=== PATIENT | male | born 1955 | race Caucasian/White ===

== ENCOUNTER 2019-03-11 17:55 | Emergency (ER) | payer BC ==
[2019-03-11] MEDS ORDERED: Dicyclomine 10 MG Cap PO ONE (18:12)
[2019-03-11] MEDS ORDERED: Sodium Chloride 0.9% 1,000 ML IV ONE (18:13)
[2019-03-11] MEDS ORDERED: methylPREDNISolone Sodium Succinate 125 MG/2 ML SDV IVPUSH ONE (18:32)
[2019-03-11] MEDS ORDERED: diphenhydrAMINE 50 MG/ML SDV IVPUSH ONE (18:32)
[2019-03-11] MEDS ORDERED: Ondansetron 4 MG/2 ML SDV IVPUSH ONE (18:39)
--- NOTE | 2019-03-11 18:39 | EDM.PDOC ---
ED HPI GENERAL MEDICAL PROBLEM - General Chief Complaint: Gastrointestinal Problem Stated Complaint: ABDOMINAL PAIN Time Seen by Provider: 03/11/19 18:12 Source of Information: Reports: Patient, RN Notes Reviewed History Limitations: Reports: No Limitations - History of Present Illness INITIAL COMMENTS - FREE TEXT/NARRATIVE: Patient is a 63-year-old male who presents to the ED for evaluation of abdominal cramping and diarrhea. Patient notes that he developed diarrhea yesterday morning around 3 AM. He states that he has had about 6 or 8 bouts of diarrhea, that were very watery, and brown. He denies any recent antibiotic use , states it is a fairly healthy human. He states he has had 1-2 episodes of diarrhea today, but this has not provided a lot of stool. He does note increased cramping with the diarrhea today. He denies any color changes except for when he took Pepto. He states that he has had the sensation of being full all day, but has not had much for bowel movements all day. He thinks that he had a fever yesterday of 100.6F. He notes that he does get hot flashes with this. He does have a mild headache. He did take some Pepto yesterday, and this did not help much. He has been taking the Tylenol also and this is not helping. He notes that he was straining to eat some cream of wheat tonight for supper, and then he developed diffuse abdominal cramping. He would rate these at an 8 or 9 out of 10. He states his last colonoscopy was in 2012. Middle Abdomen Pain Score (Numeric/FACES): 1 - Related Data Allergies Allergy/AdvReac Type Severity Reaction Status Date / Time iodine Allergy Other Verified 03/11/19 18:12 clarithromycin AdvReac Nausea Verified 03/11/19 18:11 Home Meds: Home Meds Allopurinol [Zyloprim] 100 mg PO DAILY 03/11/19 [History] Benazepril [Lotensin] 10 mg PO DAILY 03/11/19 [History] Simvastatin [Zocor] 10 mg PO BEDTIME 03/11/19 [History] Triamterene/Hydrochlorothiazid [Triamterene-HCTZ 37.5-25 MG] 1 each PO DAILY [History] Past Medical History Cardiovascular History: Reports: High Cholesterol, Hypertension Gastrointestinal History: Reports: GERD Genitourinary History: Reports: Prostate Disorder Social & Family History - Tobacco Use Smoking Status *Q: Never Smoker - Caffeine Use Caffeine Use: Reports: None ED ROS GENERAL - Review of Systems Review Of Systems: See Below Constitutional: Reports: Fever, Decreased Appetite. Denies: Chills, Weight Loss HEENT: Reports: No Symptoms Respiratory: Denies: Shortness of Breath Cardiovascular: Denies: Chest Pain Endocrine: Reports: No Symptoms GI/Abdominal: Reports: Abdominal Pain (generalized), Diarrhea, Nausea. Denies: Constipation, Vomiting : Reports: No Symptoms Musculoskeletal: Reports: No Symptoms Skin: Reports: No Symptoms Neurological: Reports: Headache Psychiatric: Reports: No Symptoms Hematologic/Lymphatic: Reports: No Symptoms ED EXAM, GI/ABD - Physical Exam Exam: See Below Exam Limited By: No Limitations General Appearance: Alert, WD/WN, No Apparent Distress Eyes: Bilateral: Normal Appearance, EOMI Throat/Mouth: Normal Inspection, Normal Lips, Normal Teeth, Normal Gums, Normal Oropharynx, Normal Voice, No Airway Compromise Head: Atraumatic, Normocephalic Respiratory/Chest: No Respiratory Distress, Lungs Clear, Normal Breath Sounds, No Accessory Muscle Use, Chest Non-Tender Cardiovascular: Normal Peripheral Pulses, Regular Rate, Rhythm, No Edema, No Murmur GI/Abdominal Exam: Soft, No Mass, Distended (pt notes he has a "gut" but states that he feels more full than usual), Guarding, Tender (generalized, but worse laterally) Extremities: Normal Inspection, Normal Capillary Refill Neurological: Alert, Oriented, Normal Cognition, No Motor/Sensory Deficits Psychiatric: Normal Affect, Normal Mood Skin Exam: Warm, Dry, Intact, Normal Color, No Rash Course - Vital Signs Last Recorded V/S: Last Vital Signs Temp 96.9 F 03/11/19 18:08 Pulse 68 03/11/19 18:08 Resp 18 03/11/19 18:08 BP 159/97 H 03/11/19 18:16 Pulse Ox 95 03/11/19 18:08 - Orders/Labs/Meds Orders: Active Orders 24 hr Category Date Time Status Peripheral IV Care [RC] . DIRECTED Care 03/11/19 18:12 Ordered CULTURE STOOL + SHIGATOX [RM] Stat Lab 03/11/19 18:29 Ordered Sodium Chloride 0.9% [Saline Flush] Med 03/11/19 18:12 Ordered 10 ml FLUSH ASDIRECTED PRN Peripheral IV Insertion Adult [OM.PC] Routine Oth 03/11/19 18:12 Ordered Medication Orders Sodium Chloride (Saline Flush) 10 ml FLUSH ASDIRECTED PRN PRN Reason: Keep Vein Open Last Admin: 03/11/19 20:10 Dose: 10 ml Admin: 03/11/19 18:49 Dose: 10 ml Labs: Laboratory Tests 03/11/19 03/11/19 03/11/19 Range/Units 18:45 18:45 19:46 WBC 10.90 H (4.23-9.07) K/mm3 RBC 5.51 (4.63-6.08) M/mm3 Hgb 15.4 (13.7-17.5) gm/dl Hct 45.9 (40.1-51.0) % MCV 83.3 (79.0-92.2) fl MCH 27.9 (25.7-32.2) pg MCHC 33.6 (32.2-35.5) g/dl RDW Std Deviation 41.3 (35.1-43.9) fL Plt Count 201 (163-337) K/mm3 MPV 9.5 (9.4-12.3) fl Neut % (Auto) 74.1 H (34.0-67.9) % Lymph % (Auto) 15.4 L (21.8-53.1) % Bowie % (Auto) 9.3 (5.3-12.2) % Eos % (Auto) 0.9 (0.8-7.0) Baso % (Auto) 0.0 L (0.1-1.2) % Neut # (Auto) 8.08 H (1.78-5.38) K/mm3 Lymph # (Auto) 1.68 (1.32-3.57) K/mm3 Bowie # (Auto) 1.01 H (0.30-0.82) K/mm3 Eos # (Auto) 0.10 (0.04-0.54) K/mm3 Baso # (Auto) 0.00 L (0.01-0.08) K/mm3 Manual Slide Review Normal smear Sodium 135 L (136-145) mEq/L Potassium 3.6 (3.5-5.1) mEq/L Chloride 99 (98-107) mEq/L Carbon Dioxide 24 (21-32) mEq/L Anion Gap 15.6 H (5-15) BUN 13 (7-18) mg/dL Creatinine 1.1 (0.7-1.3) mg/dL Est Cr Clr Drug Dosing 70.97 mL/min Estimated GFR (MDRD) > 60 (>60) mL/min BUN/Creatinine Ratio 11.8 L (14-18) Glucose 156 H (80-115) mg/dL Calcium 8.6 (8.5-10.1) mg/dL Total Bilirubin 0.8 (0.2-1.0) mg/dL AST 18 (15-37) U/L ALT 27 (16-63) U/L Alkaline Phosphatase 60 (46-116) U/L Total Protein 7.5 (6.4-8.2) g/dl Albumin 3.9 (3.4-5.0) g/dl Globulin 3.6 gm/dL Albumin/Globulin Ratio 1.1 (1-2) C.difficile [id number] Presumptive negative C. difficile Tox (PCR) Negative Meds: Medications Generic Name Dose Route Start Last Admin Trade Name Freq PRN Reason Stop Dose Admin Sodium Chloride 10 ml 03/11/19 18:12 03/11/19 20:10 Saline Flush FLUSH 10 ml ASDIRECTED PRN Administration Keep Vein Open Discontinued Medications Generic Name Dose Route Start Last Admin Trade Name Freq PRN Reason Stop Dose Admin Diatrizoate Meglum/Diatrizoate Sod 60 ml 03/11/19 19:00 03/11/19 20:10 Gastrografin 37% PO 03/11/19 19:01 60 ml ONETIME ONE Administration Dicyclomine HCl 20 mg 03/11/19 18:12 03/11/19 18:48 Bentyl PO 03/11/19 18:13 20 mg ONETIME ONE Administration Diphenhydramine HCl 25 mg 03/11/19 18:32 03/11/19 18:46 Benadryl IVPUSH 03/11/19 18:33 25 mg ONETIME ONE Administration Hydromorphone HCl 0.5 mg 03/11/19 20:16 03/11/19 20:23 Dilaudid IVPUSH 03/11/19 20:17 0.5 mg ONETIME ONE Administration Sodium Chloride 1,000 mls @ 999 mls/hr 03/11/19 18:13 03/11/19 18:48 Normal Saline IV 03/11/19 19:13 999 mls/hr ONETIME ONE Administration Iopamidol 100 ml 03/11/19 19:00 03/11/19 20:10 Isovue-300 (61%) IVPUSH 03/11/19 19:01 100 ml ONETIME ONE Administration Methylprednisolone Sodium Succinate 62.5 mg 03/11/19 18:32 03/11/19 18:48 Solu-Medrol IVPUSH 03/11/19 18:33 62.5 mg ONETIME ONE Administration Ondansetron HCl 4 mg 03/11/19 18:39 03/11/19 18:54 Zofran IVPUSH 03/11/19 18:40 4 mg ONETIME ONE Administration - Re-Assessments/Exams Free Text/Narrative Re-Assessment/Exam: 03/11/19 18:42 Patient presents to the ED for evaluation of diarrhea times around 36 hours. Did order stool cultures, if he can provide us a sample, IV with IV fluids, 20 mg dicyclomine, 4 mg Zofran, 62.5 mg Solu-Medrol, 25 mg Benadryl to be pretreated for the abdomen and pelvis CT with contrast. CBC, CMP have been ordered 03/11/19 21:38 CT demonstrates that there is mild bowel wall edema within the distal ileal loops suspicious for enteritis. Fluid within the colon which shows no dilatation. Otherwise other incidental findings. At this point in time his C. difficile is negative. His CBC is slightly elevated at 10,000, but I do not believe he has any sort of infectious process at this time. We'll give general recommendations and discharge home at this time. Departure - Departure Time of Disposition: 21:39 Disposition: Home, Self-Care 01 Condition: Fair Clinical Impression: Enteritis Diarrhea Qualifiers: Diarrhea type: unspecified type Qualified Code(s): R19.7 - Diarrhea, unspecified - Discharge Information *PRESCRIPTION DRUG MONITORING PROGRAM REVIEWED*: No *COPY OF PRESCRIPTION DRUG MONITORING REPORT IN PATIENT GEE: No Instructions: Diarrhea, Adult, [id number] Referrals: Hilton Webster MD [Primary Care Provider] - Forms: ED Department Discharge Additional Instructions: You have been evaluated in the ED for your diarrhea. Your CT demonstrated that you're suffering from a mild enteritis, which is just an inflammation of your small intestine. You may take [id number] Imodium , to help relieve symptoms of diarrhea. You have received IV fluid in the ED to help with the dehydration from the vomiting and diarrhea. Over the next 24-48 hours please try to limit diet to clear liquids and advance as tolerate to a bland diet to alleviate symptoms of diarrhea. You may use ibuprofen or Tylenol every 6 hours as needed for further pain relief. If your condition is not getting better in a few days' time, recommend use care for further evaluation. If you should develop any sort of increased dizziness, increased abdominal pain , or are not able to pass gas or have any sort of bowel movement, these would be cause for concern to return immediately to the ER for reevaluation. Please return to the ED if your symptoms should change or worsen. - My Orders Last 24 Hours: My Active Orders 03/11/19 18:12 Peripheral IV Care [RC] . DIRECTED Sodium Chloride 0.9% [Saline Flush] 10 ml FLUSH ASDIRECTED PRN Peripheral IV Insertion Adult [OM.PC] Routine 03/11/19 18:29 CULTURE STOOL + SHIGATOX [RM] Stat - Assessment/Plan Last 24 Hours: My Active Orders 03/11/19 18:12 Peripheral IV Care [RC] . DIRECTED Sodium Chloride 0.9% [Saline Flush] 10 ml FLUSH ASDIRECTED PRN Peripheral IV Insertion Adult [OM.PC] Routine 03/11/19 18:29 CULTURE STOOL + SHIGATOX [RM] Stat
[2019-03-11] MEDS: Sodium Chloride 0.9% 10 ML Syringe FLUSH PRN ×2 (18:49→20:10)
[2019-03-11] MEDS ORDERED: Diatrizoate Meglumine/Diatrizoate Sodium 37% 120 ML Bottle PO ONE (19:00)
[2019-03-11] MEDS ORDERED: Iopamidol 612 MG/ML 100 ML Bottle IVPUSH ONE (19:00)
[2019-03-11] MEDS ORDERED: HYDROmorphone 0.5 MG/0.5 ML Syringe IVPUSH ONE (20:16)
--- NOTE | 2019-03-11 20:38 | CT ---
CT abdomen and pelvis Technique: Multiple axial sections were obtained from above the dome of the diaphragm inferiorly through the pubic symphysis. Intravenous and oral contrast was utilized. Comparison: Previous CT abdomen and pelvis exam of 12/13/14. Findings: 2 very small low density findings are seen within the dome of the right and left lobes of the liver believed to represent minimal cysts. These are stable from previous exam. Visualized lung bases are clear. Spleen appears within normal limits. Adrenal glands show no nodule. Kidneys show symmetric contrast enhancement without hydronephrosis or mass. Pancreas is within normal limits. Surgical clips are seen from prior cholecystectomy. Aorta shows atherosclerotic calcification without aneurysm. No retroperitoneal adenopathy or mesenteric abnormalities are seen. No pelvic mass or adenopathy is seen. Appendix is felt to be visualized which contains a small calcification. Size of the appendix is within normal limits. There appears to be slight bowel wall edema within the distal ileal loops suspicious for mild enteritis. Fluid is noted within the colon which shows no dilatation. Delayed images shows contrast within the distal ureters and within the bladder. Bone window settings were reviewed which shows degenerative change within the spine which is most severe at L4-5. Impression: 1. Mild bowel wall edema within the distal ileal loops suspicious for enteritis. 2. Fluid within this colon which shows no dilatation. 3. Other findings which are believed to be incidental. No other acute abnormality is appreciated. Diagnostic code #3
== END 2019-03-11 21:50 | disposition home or self-care (01) ==
LOC: JD.ED 17:55
DX: K52.9 Noninfective gastroenteritis and colitis, unspecified (principal); I10 Essential (primary) hypertension; E78.00 Pure hypercholesterolemia, unspecified; Z79.899 Other long term (current) drug therapy; Z88.1 Allergy status to other antibiotic agents; Z88.8 Allergy status to other drugs, medicaments and biological substances
CPT/HCPCS: 36415; 74177; 80053; 85025; 87046; 87493; 89055; 96374; 96375; 99284; A9270; J1170; J1200; J2405; J2930; J7040; Q9963; Q9967; 87427

== ENCOUNTER 2020-03-13 03:27 | Emergency (ER) | payer BC ==
[2020-03-13] MEDS ORDERED: Ondansetron 4 MG Tab.DIS PO ONE (04:11)
--- NOTE | 2020-03-13 04:14 | EDM.PDOC ---
ED HPI GENERAL MEDICAL PROBLEM - General Chief Complaint: General Stated Complaint: COVID POSITIVE SOB Time Seen by Provider: 03/13/20 03:47 Source of Information: Reports: Patient History Limitations: Reports: No Limitations - History of Present Illness INITIAL COMMENTS - FREE TEXT/NARRATIVE: Mr. Quijano is a very pleasant 64-year-old gentleman who now presents to the ED with fever, chills, generalized weakness, and a cough, after testing positive for the SARS-CoV-2 virus on 03/07/2020, receiving the results on 03/10/2020. He states that he had been feeling symptomatic, however, since 03/04/2020. He states that his T-max was 101.9 degrees about 1 to 2 days ago. He states that his cough is occasionally productive of whitish sputum, and sometimes his cough is so severe that he dry heaves. He has not otherwise had any nausea, vomiting, constipation, or diarrhea. The patient states that he has been taking both Tylenol and ibuprofen to treat his symptoms, with his most recent dose of Tylenol around 21:00 last night. Here in the ED, the patient's initial BP is found to be mildly elevated at 160/66, otherwise, he is hemodynamically stable, afebrile, saturating 95% on room air. Prior to 03/04/2020, the patient denies having a recent fever, chills, sore throat, ear pain, nasal or sinus congestion, cough, dyspnea, chest pain, palpitations, nausea, vomiting, constipation, diarrhea, abdominal pain, urinary symptoms, recent weight gain or weight loss, recent bloody bowel movements or black bowel movements, recent joint aches, headaches, or rashes. The patient is PCP is Dr. Hilton Webster. His Urologist is Dr. Brett Bhandari. - Related Data Allergies Allergy/AdvReac Type Severity Reaction Status Date / Time bacitracin Allergy Nausea Verified 03/13/20 03:45 iodine Allergy Other Verified 03/13/20 03:45 clarithromycin AdvReac Nausea Verified 03/13/20 03:45 Home Meds: Home Meds Benazepril [Lotensin] 10 mg PO DAILY 03/11/19 [History] Simvastatin [Zocor] 10 mg PO BEDTIME 03/11/19 [History] Triamterene/Hydrochlorothiazid [Triamterene-HCTZ 37.5-25 MG] 1 each PO DAILY 03/11/19 [History] allopurinoL [Zyloprim] 100 mg PO DAILY 03/11/19 [History] Ondansetron [Zofran ODT] 1 tab PO Q8H PRN #10 tab.dis 03/13/20 [Rx] Past Medical History Cardiovascular History: Reports: High Cholesterol, Hypertension Respiratory History: Reports: Sleep Apnea (nightly CPAP) Gastrointestinal History: Reports: GERD (untreated) Genitourinary History: Reports: Renal Calculus Endocrine/Metabolic History: Reports: Obesity/BMI 30+ - Infectious Disease History Infectious Disease History: Reports: Novel Coronavirus (dx'd 03/07/2020) - Past Surgical History HEENT Surgical History: Reports: Naso-Sinus Surgery (Rhinoplasty), Oral Surgery (dental extractions) GI Surgical History: Reports: Cholecystectomy (around 1999) Male Surgical History: Reports: Lithotripsy ([facility]), Renal Calculus Musculoskeletal Surgical History: Reports: Other (See Below) (Left ruptured biceps tendon arthroscopic repair) Social & Family History - Tobacco Use Tobacco Use Status *Q: Never Tobacco User Second Hand Smoke Exposure: No - Caffeine Use Caffeine Use: Reports: None - Alcohol Use Alcohol Use History: Yes Alcohol Use Frequency: Rarely - Recreational Drug Use Recreational Drug Use: No - Living Situation & Occupation Living situation: Reports: , with Spouse Occupation: Retired ED ROS GENERAL - Review of Systems Review Of Systems: Comprehensive ROS is negative, except as noted in HPI. ED EXAM, GENERAL - Physical Exam Exam: See Below Exam Limited By: No Limitations General Appearance: Alert, WD/WN, Mild Distress (coughs frequently) Eye Exam: Bilateral Eye: EOMI, Normal Inspection Ears: Normal External Exam, Hearing Grossly Normal Nose: Normal Inspection Throat/Mouth: Normal Inspection, Normal Lips, Normal Voice, No Airway Compromise Head: Atraumatic, Normocephalic Neck: Normal Inspection, Full Range of Motion Respiratory/Chest: No Respiratory Distress, Lungs Clear, Normal Breath Sounds, No Accessory Muscle Use, Chest Non-Tender. No: Decreased Breath Sounds, Crackles, Rhonchi, Wheezing, Stridor, Prolonged Expiration Cardiovascular: Normal Peripheral Pulses, Regular Rate, Rhythm, No Gallop, No JVD, No Murmur, No Rub Peripheral Pulses: 3+: Radial (L), Radial (R) GI/Abdominal: Normal Bowel Sounds, Soft, Non-Tender, No Organomegaly, No Distention, No Abnormal Bruit, No Mass Back Exam: Normal Inspection, Full Range of Motion, NT Extremities: Normal Inspection, Normal Range of Motion, Normal Capillary Refill Neurological: Alert, Oriented, Normal Cognition, No Motor/Sensory Deficits Psychiatric: Normal Affect Skin Exam: Warm, Dry, Intact, Normal Color, No Rash Course - Vital Signs Last Recorded V/S: Last Vital Signs Temp 37.2 C 03/13/20 03:40 Pulse 88 03/13/20 03:40 Resp 18 03/13/20 03:40 BP 160/66 H 03/13/20 03:40 Pulse Ox 95 03/13/20 03:40 - Orders/Labs/Meds Orders: Active Orders 24 hr Category Date Time Status Chest 2V [CR] Stat Exams 03/13/20 04:10 Taken Isolation [COMM] Routine Oth 03/13/20 03:56 Ordered Meds: Medications Discontinued Medications Generic Name Dose Route Start Last Admin Trade Name Tanya PRN Reason Stop Dose Admin Ondansetron HCl 4 mg 03/13/20 04:11 03/13/20 04:40 Zofran Odt PO 03/13/20 04:12 4 mg ONETIME ONE Administration - Re-Assessments/Exams Free Text/Narrative Re-Assessment/Exam: 03/13/20 04:12 As above, the patient tested positive for COVID-19 on 03/07/2020, although has been feeling poorly since 03/04/2020, including fever, chills, generalized weakness, and a cough occasionally productive of whitish sputum, sometimes to the point of having dry heaves. Here in the ED, he is afebrile, saturating 95% on room air. He coughs frequently. His physical exam is grossly unremarkable, including clear lungs. I have ordered a chest x-ray to establish a baseline, along with some oral Zofran, however, I explained to the patient that there are no other treatments available at this time, unless his oxygen saturation drops low enough to require supplemental oxygen. The patient expressed understanding. 03/13/20 05:18 2-view chest radiograph is read by Ramiro as "Multifocal lung parenchymal opacities worrisome for multifocal pneumonia." 03/13/20 05:24 Chest x-ray results discussed with the patient. His findings are consistent with COVID-19 pneumonia, although a superimposed bacterial pneumonia is possible, as well. I offered to perform additional blood work, including blood cultures, but the patient declined. I will discharge him home with a prescription for Zofran ODT. The patient is advised to remain quarantined until he is feeling better, then to not return to society until he tests negative, twice. Departure - Departure Time of Disposition: 05:25 Disposition: Home, Self-Care 01 Condition: Good Clinical Impression: Pneumonia due to COVID-19 virus - Discharge Information *PRESCRIPTION DRUG MONITORING PROGRAM REVIEWED*: Not Applicable *COPY OF PRESCRIPTION DRUG MONITORING REPORT IN PATIENT GEE: Not Applicable Prescriptions: Ondansetron [Zofran ODT] 1 tab PO Q8H PRN #10 tab.dis PRN Reason: Nausea/Vomiting Referrals: Hilton Webster MD [Primary Care Provider] - Brett Bhandari MD [Ordering Only Provider] - Forms: ED Department Discharge Additional Instructions: You were seen in the emergency room for fever, chills, generalized weakness, and a cough occasionally productive of white sputum, since 03/04/2020, with a positive test for COVID-19 on 03/07/2020. Work-up in the ER included a chest x-ray, which demonstrated bilateral hazy infiltrates consistent with COVID-19 pneumonia. Additional work-up, including blood work and blood cultures was offered, but declined. As discussed, there are no treatments available for COVID-19 unless your oxygen saturation drops low enough to require supplemental oxygen, which yours has not. A prescription for the anti-nausea medicine Zofran has been sent to the [facility], located just south and across the [address] from [facility]. Dissolve 1 tablet of Zofran on your tongue up to every 8 hours, as needed for nausea/vomiting. As discussed, it is imperative that you remain quarantined until you tested negative for COVID-19, twice. We recommend that you get retested once you are feeling better. If any other problems, please do not hesitate to return to the ER. Sepsis Event Note (ED) - Evaluation Sepsis Screening Result: No Definite Risk - Focused Exam Vital Signs: Vital Signs Temp Pulse Resp BP Pulse Ox 03/13/20 03:40 37.2 C 88 18 160/66 H 95 - My Orders Last 24 Hours: My Active Orders 03/13/20 03:56 Isolation [COMM] Routine 03/13/20 04:10 Chest 2V [CR] Stat - Assessment/Plan Last 24 Hours: My Active Orders 03/13/20 03:56 Isolation [COMM] Routine 03/13/20 04:10 Chest 2V [CR] Stat
--- NOTE | 2020-03-13 10:21 | CR ---
PROCEDURE INFORMATION: Exam: XR Chest, 2 Views Exam date and time: 03/13/2020 4:33 AM Age: 64 years old Clinical indication: Cough and fever; Patient HX: Covid positive test last week, fever, cough, dizziness and belching TECHNIQUE: Imaging protocol: XR of the chest Views: 2 views. COMPARISON: CR Chest 1V Frontal 08/06/2015 8:40 PM FINDINGS: Lungs: Multifocal parenchymal opacities confluent in the right upper lobe and left base worrisome for multifocal pneumonia. There is relative sparing of the left upper lung. Pleural space: Unremarkable. No pleural effusion. No pneumothorax. Heart/Mediastinum: Unremarkable. No cardiomegaly. Bones/joints: Mild degenerative changes both shoulders. Degenerative spondylosis thoracic spine. IMPRESSION: Multifocal lung parenchymal opacities worrisome for multifocal pneumonia. Thank you for allowing us to participate in the care of your patient. Dictated and Authenticated by: Princess Garcia MD 03/13/2020 6:16 AM Central Time ([place] & [place]) ANANTH
== END 2020-03-13 06:00 | disposition home or self-care (01) ==
LOC: JD.ED 03:27
DX: U07.1 COVID-19 (principal); J12.89 Other viral pneumonia; I10 Essential (primary) hypertension; E78.00 Pure hypercholesterolemia, unspecified; E66.9 Obesity, unspecified; Z88.1 Allergy status to other antibiotic agents; Z90.49 Acquired absence of other specified parts of digestive tract; Z68.35 Body mass index [BMI] 35.0-35.9, adult; Z79.899 Other long term (current) drug therapy
CPT/HCPCS: 71046; 99284; A9270

== ENCOUNTER 2020-03-14 18:26 | Emergency (ER) | payer BC ==
--- NOTE | 2020-03-14 20:49 | EDM.PDOC ---
ED HPI GENERAL MEDICAL PROBLEM - General Chief Complaint: Respiratory Problem Stated Complaint: covid positive Time Seen by Provider: 03/14/20 19:36 Source of Information: Reports: Patient, Old Records (ED visit 03/13/2020) History Limitations: Reports: No Limitations - History of Present Illness INITIAL COMMENTS - FREE TEXT/NARRATIVE: Mr. Quijano is a very pleasant 64-year-old gentleman who was seen by me in this ED yesterday morning, 03/13/2020, with a complaint of symptoms due to COVID-19, including fever, chills, generalized weakness, and a cough since 03/04/2020, then testing positive for the SARS-CoV-2 virus on 03/07/2020, receiving the results on 03/10/2020. He reported that his cough was occasionally productive of whitish sputum, and that sometimes his cough is so severe that he dry heaves. He had not otherwise had any nausea, vomiting, constipation, or diarrhea. He stated that he had been taking both Tylenol and ibuprofen to treat his symptoms. He was found to be hemodynamically stable, afebrile, saturating 95% on room air. Work-up included a chest x-ray, which was read by the read as "Multifocal lung parenchymal opacities worrisome for multifocal pneumonia." Additional work-up, including blood work and blood cultures were offered but declined. The patient was discharged home with a prescription for Zofran and the recommendation to remain quarantined until he was feeling better, then not rejoin society until he tested negative twice. The patient now returns to the ED stating that he continues to have chest tightness, dyspnea, and a fever up to 101 degrees, which she has been treating with Tylenol. He is also concerned about low oxygen saturations; he states that his home pulse oximeter will drop to 82 to 83% when he is at rest, but then rise into the 90s when he ambulates. Here in the ED, the patient's initial BP is found to be mildly elevated at 153/77, otherwise, he is hemodynamically stable, afebrile, saturating 93 to 97% on room air. Prior to 03/04/2020, the patient denies having a recent fever, chills, sore throat, ear pain, nasal or sinus congestion, cough, dyspnea, chest pain, palpitations, nausea, vomiting, constipation, diarrhea, abdominal pain, urinary symptoms, recent weight gain or weight loss, recent bloody bowel movements or black bowel movements, recent joint aches, headaches, or rashes. The patient's PCP is Dr. Hilton Webster. His Urologist is Dr. Brett Bhandari. Chest Pain Score (Numeric/FACES): 5 - Related Data Allergies Allergy/AdvReac Type Severity Reaction Status Date / Time bacitracin Allergy Severe Nausea Verified 03/14/20 18:39 iodine Allergy Severe Other Verified 03/14/20 18:39 clarithromycin AdvReac Severe Nausea Verified 03/14/20 18:39 Home Meds: Home Meds Benazepril [Lotensin] 10 mg PO DAILY 03/11/19 [History] Simvastatin [Zocor] 10 mg PO BEDTIME 03/11/19 [History] Triamterene/Hydrochlorothiazid [Triamterene-HCTZ 37.5-25 MG] 1 each PO DAILY 03/11/19 [History] allopurinoL [Zyloprim] 100 mg PO DAILY 03/11/19 [History] Ondansetron [Zofran ODT] 1 tab PO Q8H PRN #10 tab.dis 03/13/20 [Rx] Past Medical History Cardiovascular History: Reports: High Cholesterol, Hypertension Respiratory History: Reports: Sleep Apnea (nightly CPAP) Gastrointestinal History: Reports: GERD (untreated) Genitourinary History: Reports: Renal Calculus Endocrine/Metabolic History: Reports: Obesity/BMI 30+ - Infectious Disease History Infectious Disease History: Reports: Novel Coronavirus (dx'd 03/07/2020) - Past Surgical History HEENT Surgical History: Reports: Naso-Sinus Surgery (rhinoplasty), Oral Surgery (dental extractions) GI Surgical History: Reports: Cholecystectomy (around 1999) Male Surgical History: Reports: Lithotripsy (ESWL), Renal Calculus Musculoskeletal Surgical History: Reports: Other (See Below) (Left ruptured biceps tendon arthroscopic repair) Social & Family History - Tobacco Use Tobacco Use Status *Q: Never Tobacco User - Caffeine Use Caffeine Use: Reports: None - Alcohol Use Alcohol Use History: Yes Alcohol Use Frequency: Rarely - Recreational Drug Use Recreational Drug Use: No - Living Situation & Occupation Living situation: Reports: , with Spouse Occupation: Retired ED ROS GENERAL - Review of Systems Review Of Systems: Comprehensive ROS is negative, except as noted in HPI. ED EXAM, GENERAL - Physical Exam Exam: See Below Exam Limited By: No Limitations General Appearance: Alert, WD/WN, Mild Distress (appears uncomfortable) Eye Exam: Bilateral Eye: EOMI, Normal Inspection Ears: Normal External Exam, Hearing Grossly Normal Nose: Normal Inspection Throat/Mouth: Normal Inspection, Normal Lips, Normal Voice, No Airway Compromise Head: Atraumatic, Normocephalic Neck: Normal Inspection, Full Range of Motion Respiratory/Chest: No Respiratory Distress, No Accessory Muscle Use, Chest Non- Tender, Crackles (bibasilar, end-inspiratory). No: Decreased Breath Sounds, Rhonchi, Wheezing, Stridor, Prolonged Expiration Cardiovascular: Normal Peripheral Pulses, Regular Rate, Rhythm, No Gallop, No JVD, No Murmur, No Rub Peripheral Pulses: 3+: Radial (L), Radial (R) GI/Abdominal: Normal Bowel Sounds, Soft, Non-Tender, No Organomegaly, No Distention, No Abnormal Bruit, No Mass Back Exam: Normal Inspection, Full Range of Motion, NT Extremities: Normal Inspection, Normal Range of Motion, No Pedal Edema, Normal Capillary Refill Neurological: Alert, Oriented, Normal Cognition, No Motor/Sensory Deficits Psychiatric: Normal Affect Skin Exam: Warm, Dry, Intact, Normal Color, No Rash #1 Interpretation EKG Date: 03/14/20 Time: 18:45 Rhythm: NSR Rate (Beats/Min): 73 [place]: Normal P-Wave: Present QRS: Normal ST-T: Normal QT: Normal Comparison: NA - No Prior EKG Course - Vital Signs Last Recorded V/S: Last Vital Signs Temp 37.2 C 03/14/20 18:32 Pulse 76 03/14/20 18:32 Resp 20 03/14/20 18:32 BP 153/77 H 03/14/20 18:32 Pulse Ox 93 L 03/14/20 18:32 - Orders/Labs/Meds Orders: Active Orders 24 hr Category Date Time Status EKG Documentation Completion [RC] STAT Care 03/14/20 20:37 Active Chest 2V [CR] Stat Exams 03/14/20 20:37 Taken CULTURE BLOOD [BC] Stat Lab 03/14/20 21:04 Received CULTURE BLOOD [BC] Stat Lab 03/14/20 21:14 Received Blood Culture x2 Reflex Set [OM.PC] Stat Oth 03/14/20 20:37 Ordered Labs: Laboratory Tests 03/14/20 03/14/20 03/14/20 Range/Units 21:04 21:04 21:04 WBC 9.96 H (4.23-9.07) K/mm3 RBC 4.61 L (4.63-6.08) M/mm3 Hgb 13.2 L D (13.7-17.5) gm/dl Hct 39.5 L (40.1-51.0) % MCV 85.7 (79.0-92.2) fl MCH 28.6 (25.7-32.2) pg MCHC 33.4 (32.2-35.5) g/dl RDW Std Deviation 43.0 (35.1-43.9) fL Plt Count 199 (163-337) K/mm3 MPV 9.3 L (9.4-12.3) fl Neutrophils % (Manual) 74 H (40-60) % Band Neutrophils % 0 (0-10) % Lymphocytes % (Manual) 17 L (20-40) % Atypical Lymphs % 0 % Monocytes % (Manual) 7 (2-10) % Eosinophils % (Manual) 2 (0.8-7.0) % Basophils % (Manual) 0 L (0.2-1.2) Platelet Estimate Adequate Plt Morphology Comment Normal RBC Morph Comment Normal D-Dimer, Quantitative 0.39 (0.19-0.50) mg/L Puncture Site ABG pH (7.35-7.45) ABG pCO2 (35.0-45.0) mmHg ABG pO2 (80.0-100.0) mmHg ABG HCO3 (22.0-26.0) meq/L ABG Base Excess (-2-2.0) Marcus Test O2 Delivery Device Sodium 137 (136-145) mEq/L Potassium 3.7 (3.5-5.1) mEq/L Chloride 100 (98-107) mEq/L Carbon Dioxide 27 (21-32) mEq/L Anion Gap 13.7 (5-15) BUN 9 (7-18) mg/dL Creatinine 0.9 (0.7-1.3) mg/dL Est Cr Clr Drug Dosing 85.62 mL/min Estimated GFR (MDRD) > 60 (>60) mL/min BUN/Creatinine Ratio 10.0 L (14-18) Glucose 115 (80-115) mg/dL Lactic Acid (0.4-2.0) mmol/L Calcium 9.0 (8.5-10.1) mg/dL Magnesium 1.9 (1.8-2.4) mg/dl Total Bilirubin 0.7 (0.2-1.0) mg/dL AST 21 (15-37) U/L ALT 28 (16-63) U/L Alkaline Phosphatase 56 (46-116) U/L Troponin I < 0.017 (0.00-0.056) ng/mL NT-Pro-B Natriuret Pep (0-125) pg/mL Total Protein 7.3 (6.4-8.2) g/dl Albumin 3.3 L (3.4-5.0) g/dl Globulin 4.0 gm/dL Albumin/Globulin Ratio 0.8 L (1-2) 03/14/20 03/14/20 03/14/20 Range/Units 21:04 21:04 21:24 WBC (4.23-9.07) K/mm3 RBC (4.63-6.08) M/mm3 Hgb (13.7-17.5) gm/dl Hct (40.1-51.0) % MCV (79.0-92.2) fl MCH (25.7-32.2) pg MCHC (32.2-35.5) g/dl RDW Std Deviation (35.1-43.9) fL Plt Count (163-337) K/mm3 MPV (9.4-12.3) fl Neutrophils % (Manual) (40-60) % Band Neutrophils % (0-10) % Lymphocytes % (Manual) (20-40) % Atypical Lymphs % % Monocytes % (Manual) (2-10) % Eosinophils % (Manual) (0.8-7.0) % Basophils % (Manual) (0.2-1.2) Platelet Estimate Plt Morphology Comment RBC Morph Comment D-Dimer, Quantitative (0.19-0.50) mg/L Puncture Site Rt radial ABG pH 7.47 H (7.35-7.45) ABG pCO2 38.5 (35.0-45.0) mmHg ABG pO2 62.0 L (80.0-100.0) mmHg ABG HCO3 27.3 H (22.0-26.0) meq/L ABG Base Excess 3.9 H (-2-2.0) Marcus Test Positive O2 Delivery Device Room air Sodium (136-145) mEq/L Potassium (3.5-5.1) mEq/L Chloride (98-107) mEq/L Carbon Dioxide (21-32) mEq/L Anion Gap (5-15) BUN (7-18) mg/dL Creatinine (0.7-1.3) mg/dL Est Cr Clr Drug Dosing mL/min Estimated GFR (MDRD) (>60) mL/min BUN/Creatinine Ratio (14-18) Glucose (80-115) mg/dL Lactic Acid 1.0 (0.4-2.0) mmol/L Calcium (8.5-10.1) mg/dL Magnesium (1.8-2.4) mg/dl Total Bilirubin (0.2-1.0) mg/dL AST (15-37) U/L ALT (16-63) U/L Alkaline Phosphatase (46-116) U/L Troponin I (0.00-0.056) ng/mL NT-Pro-B Natriuret Pep 56 (0-125) pg/mL Total Protein (6.4-8.2) g/dl Albumin (3.4-5.0) g/dl Globulin gm/dL Albumin/Globulin Ratio (1-2) - Re-Assessments/Exams Free Text/Narrative Re-Assessment/Exam: 03/14/20 20:41 As above, the patient tested positive for the macro SARS on 03/07/2020, although he has been symptomatic since 03/04/2020, including fever, dyspnea, cough, and chest tightness. He was seen by me here in the ED yesterday where a chest x-ray demonstrated bilateral hazy infiltrates consistent with COVID-19 pneumonia, how ever, he declined further work-up. He now returns because his pulse oximeter at home is reading 82 to 83% when he is not exerting himself at home, but up to the 90s when he does exert himself, which is paradoxical, and his SPO2 here in the ED is 93 to 97% while at rest, considerably different from what he is getting at home. Unfortunately, he did not bring his pulse oximeter with him. I suspect that his pulse oximeter is giving him artificially low numbers. The patient would like, however, the work-up that I offered yesterday, therefore I have ordered blood work, an ABG, 2 sets of blood cultures, repeat chest x-ray, and an ECG. 03/14/20 22:23 2-view chest radiograph is read by [facility] as "Findings compatible with mild COVID- 19 pneumonia." The patient's CBC is remarkable for WBC count mildly elevated at 9.96, but with 0% bandemia. His H/H are mildly depressed at 13.2/39.5, with the remainder of his CBC being unremarkable. His CMP is unremarkable. His magnesium level is within normal limits at 1.9. His lactic acid level is within normal limits at 1.0. His BNP is within normal limits at 56. His troponin is undetectably low. His D-dimer is within normal limits at 0.39. His ABG represents a combined primary respiratory alkalosis with secondary metabolic alkalosis, with modest hypoxemia. 03/14/20 22:35 Test results discussed with the patient. As above, today's work-up is grossly unremarkable, and consistent with the patient's known COVID-19 diagnosis. His work-up is not consistent with the superimposed bacterial infection. I recommended to the patient that if he continues to get low oxygen readings on his home pulse oximeter, that he bring it to the ED to get a comparison with ours, so that he can have an idea of how off his device is, but as for his symptoms, unfortunately, the patient is simply going to have to tolerate them, as there is nothing that we can offer. Departure - Departure Time of Disposition: 22:37 Disposition: Home, Self-Care 01 Condition: Good Clinical Impression: COVID-19 - Discharge Information *PRESCRIPTION DRUG MONITORING PROGRAM REVIEWED*: Not Applicable *COPY OF PRESCRIPTION DRUG MONITORING REPORT IN PATIENT GEE: Not Applicable Referrals: Hilton Webster MD [Primary Care Provider] - Brett Bhandari MD [Ordering Only Provider] - Forms: ED Department Discharge Additional Instructions: You were seen in the emergency room for continued symptoms of your previously diagnosed COVID-19, including chest tightness, shortness of breath, fever, and low oxygen saturation on your home pulse oximeter. Here in the ED, your pulse oximeter found her oxygen saturation to be 93 to 97% on room air. Work-up in the ER included blood work, 2 sets of blood cultures, an arterial blood gas, a chest x-ray, and an ECG. Your chest x-ray read demonstrated bilateral hazy infiltrates consistent with COVID-19 pneumonia. The remainder of your work-up was unremarkable. There is no evidence for a superimposed bacterial infection. As discussed, there are no treatments available for COVID-19 unless your oxygen saturation drops low enough to require supplemental oxygen, which yours has not. If your home pulse oximeter readings continue to be low, we recommend that you bring your device to the ER to have it compared to ours, so that you can know how far off your device is. As discussed, it is imperative that you remain quarantined until you have tested negative for COVID-19, twice. We recommend that you get retested once you are feeling better. If any other problems, please do not hesitate to return to the ER. Sepsis Event Note (ED) - Evaluation Sepsis Screening Result: No Definite Risk - Focused Exam Vital Signs: Vital Signs Temp Pulse Resp BP Pulse Ox 03/14/20 18:32 37.2 C 76 20 153/77 H 93 L - My Orders Last 24 Hours: My Active Orders 03/14/20 20:37 EKG Documentation Completion [RC] STAT Chest 2V [CR] Stat Blood Culture x2 Reflex Set [OM.PC] Stat 03/14/20 21:04 CULTURE BLOOD [BC] Stat 03/14/20 21:14 CULTURE BLOOD [BC] Stat - Assessment/Plan Last 24 Hours: My Active Orders 03/14/20 20:37 EKG Documentation Completion [RC] STAT Chest 2V [CR] Stat Blood Culture x2 Reflex Set [OM.PC] Stat 03/14/20 21:04 CULTURE BLOOD [BC] Stat 03/14/20 21:14 CULTURE BLOOD [BC] Stat
--- NOTE | 2020-03-15 08:44 | CR ---
PROCEDURE INFORMATION: Exam: XR Chest, 2 Views Exam date and time: 03/14/2020 9:40 PM Age: 64 years old Clinical indication: Shortness of breath; Patient HX: Covid positive TECHNIQUE: Imaging protocol: XR of the chest Views: 2 views. COMPARISON: DX Chest 2V 03/13/2020 4:33 AM FINDINGS: Lungs: There is patchy peripheral airspace density in both lungs. This appears to be slightly increased when compared to the previous examination and is compatible with the patient's stated history of COVID-19 pneumonia. Overall severity is mild. There is no pulmonary edema. Pleural space: Unremarkable. No pleural effusion. No pneumothorax. Heart/Mediastinum: Unremarkable. No cardiomegaly. Bones/joints: Unremarkable. IMPRESSION: Findings compatible with mild COVID-19 pneumonia. Thank you for allowing us to participate in the care of your patient. Dictated and Authenticated by: Brett Bradford MD 03/14/2020 10:56 PM Central Time ([place] & [place]) ANANTH
== END 2020-03-14 23:12 | disposition home or self-care (01) ==
LOC: JD.ED 18:26
DX: U07.1 COVID-19 (principal); E78.00 Pure hypercholesterolemia, unspecified; I10 Essential (primary) hypertension; E66.9 Obesity, unspecified; Z68.35 Body mass index [BMI] 35.0-35.9, adult; Z88.1 Allergy status to other antibiotic agents; Z91.048 Other nonmedicinal substance allergy status; Z79.899 Other long term (current) drug therapy
CPT/HCPCS: 36415; 36600; 71046; 71046-26; 80053; 82803; 83605; 83735; 83880; 84484; 85007; 85027; 85379; 87040; 93005; 99285-25

== ENCOUNTER 2020-03-15 14:14 | Inpatient (IN) | payer BC ==
--- NOTE | 2020-03-15 16:29 | EDM.PDOC ---
ED HPI GENERAL MEDICAL PROBLEM - General Chief Complaint: Respiratory Problem Stated Complaint: COVID+/SOB/COUGH Time Seen by Provider: 03/15/20 16:29 - History of Present Illness INITIAL COMMENTS - FREE TEXT/NARRATIVE: 64-year-old male returns the emergency room with continued shortness of breath painful cough and hypoxia. Patient is been evaluated in this emergency room 2 other times in the last 2 days. Condition continues to worsen with increased shortness of breath a very painful cough and hypoxia. The patient has noticed his O2 saturation dropping as low as 82% at home. He has not done that here in the emergency room however when I am interviewing he drops to 87-88% on our monitors. In the clinic he was also noted to be quite low. His regular physician, Dr. Webster, and call me earlier today and inform me the patient would be coming in. The patient was swabbed on the of last month and was informed of his positive status on the . He has now been sick for over a week. Chest Pain Score (Numeric/FACES): 4 - Related Data Allergies Allergy/AdvReac Type Severity Reaction Status Date / Time bacitracin Allergy Severe Nausea Verified 03/15/20 14:49 iodine Allergy Severe Other Verified 03/15/20 14:49 clarithromycin AdvReac Severe Nausea Verified 03/15/20 14:49 Home Meds: Home Meds Benazepril [Lotensin] 10 mg PO DAILY 03/11/19 [History] Simvastatin [Zocor] 10 mg PO BEDTIME 03/11/19 [History] Triamterene/Hydrochlorothiazid [Triamterene-HCTZ 37.5-25 MG] 1 each PO DAILY 03/11/19 [History] allopurinoL [Zyloprim] 100 mg PO DAILY 03/11/19 [History] Ondansetron [Zofran ODT] 1 tab PO Q8H PRN #10 tab.dis 03/13/20 [Rx] Past Medical History Cardiovascular History: Reports: High Cholesterol, Hypertension Respiratory History: Reports: Sleep Apnea Gastrointestinal History: Reports: GERD Genitourinary History: Reports: Renal Calculus Endocrine/Metabolic History: Reports: Obesity/BMI 30+ - Infectious Disease History Infectious Disease History: Reports: Novel Coronavirus - Past Surgical History HEENT Surgical History: Reports: Naso-Sinus Surgery, Oral Surgery GI Surgical History: Reports: Cholecystectomy Male Surgical History: Reports: Lithotripsy (ESWL), Renal Calculus Social & Family History - Tobacco Use Tobacco Use Status *Q: Unknown Ever Used Tobacco - Caffeine Use Caffeine Use: Reports: None - Living Situation & Occupation Living situation: Reports: , with Spouse Occupation: Retired ED ROS GENERAL - Review of Systems Review Of Systems: See Below Constitutional: Reports: Fever, Chills (His fever and chills for the most part have resolved) HEENT: Reports: No Symptoms Respiratory: Reports: Shortness of Breath, Pleuritic Chest Pain, Cough, Sputum (Occasional clearish foamy sputum) Cardiovascular: Reports: No Symptoms Endocrine: Reports: No Symptoms GI/Abdominal: Reports: Vomiting (He has had some posttussive vomiting but does has not felt nauseated). Denies: Abdominal Pain : Reports: No Symptoms Musculoskeletal: Reports: No Symptoms Skin: Reports: No Symptoms Neurological: Reports: No Symptoms Psychiatric: Reports: No Symptoms Hematologic/Lymphatic: Reports: No Symptoms Immunologic: Reports: No Symptoms ED EXAM, GENERAL - Physical Exam Exam: See Below Exam Limited By: No Limitations General Appearance: Alert, Other (He has these coughing felt spells that are somewhat uncomfortable. With observation of watched his O2 saturation dropped into the 87 to 88% range on room air) Eye Exam: Bilateral Eye: Normal Inspection Ears: Normal External Exam, Normal Canal, Hearing Grossly Normal, Normal TMs Nose: Normal Inspection, Normal Mucosa, No Blood Throat/Mouth: Normal Inspection, Normal Lips, Normal Teeth, Normal Gums, Normal Oropharynx, Normal Voice, No Airway Compromise Head: Atraumatic, Normocephalic Neck: Normal Inspection, Supple, Non-Tender. No: Lymphadenopathy (L), Lymphadenopathy (R) Respiratory/Chest: No Respiratory Distress, Lungs Clear, Other (Frequent cough, deep breathing makes the cough worse.) Cardiovascular: Regular Rate, Rhythm, No Edema, No Murmur GI/Abdominal: Normal Bowel Sounds, Soft, Non-Tender Back Exam: Normal Inspection. No: CVA Tenderness (L), CVA Tenderness (R) Neurological: Alert, Oriented, Normal Cognition Course - Vital Signs Last Recorded V/S: Last Vital Signs Temp 36.8 C 03/15/20 14:49 Pulse 76 03/15/20 14:49 Resp 18 03/15/20 14:49 BP 130/74 03/15/20 14:49 Pulse Ox 92 L 03/15/20 14:49 - Orders/Labs/Meds Orders: Active Orders 24 hr Category Date Time Status Nurse Communication: Isolation [RC] ASDIRECTED Care 03/15/20 15:15 Active Chest 1V Frontal [CR] Stat Exams 03/15/20 16:59 Ordered ABG [BLOOD GAS ARTERIAL] [BG] Stat Lab 03/15/20 17:05 Ordered CBC WITH MANUAL DIFF [HEME] Stat Lab 03/15/20 17:13 Results COMPREHENSIVE METABOLIC PN,CMP [CHEM] Stat Lab 03/15/20 17:13 Received FERRITIN [CHEM] Stat Lab 03/15/20 17:13 Received LACTATE DEHYDROGENASE,LDH [CHEM] Stat Lab 03/15/20 17:13 Received Isolation [COMM] Routine Oth 03/15/20 15:15 Ordered Labs: Laboratory Tests 03/15/20 03/15/20 Range/Units 16:25 17:13 WBC 8.93 (4.23-9.07) K/mm3 RBC 4.83 (4.63-6.08) M/mm3 Hgb 13.5 L (13.7-17.5) gm/dl Hct 41.3 (40.1-51.0) % MCV 85.5 (79.0-92.2) fl MCH 28.0 (25.7-32.2) pg MCHC 32.7 (32.2-35.5) g/dl RDW Std Deviation 42.4 (35.1-43.9) fL Plt Count 246 (163-337) K/mm3 MPV 9.3 L (9.4-12.3) fl Urine Color Yellow (Yellow) Urine Appearance Clear (Clear) Urine pH 6.0 (5.0-8.0) Ur Specific Joseph 1.015 (1.005-1.030) Urine Protein Negative (Negative) Urine Glucose (UA) Negative (Negative) Urine Ketones Negative (Negative) Urine Occult Blood Negative (Negative) Urine Nitrite Negative (Negative) Urine Bilirubin Negative (Negative) Urine Urobilinogen 0.2 (0.2-1.0) Ur Leukocyte Esterase Negative (Negative) - Re-Assessments/Exams Free Text/Narrative Re-Assessment/Exam: 03/15/20 17:03 Interviewing the patient his O2 saturation was dropped to the 87 to 88% range on room air. He did this to me on several occasions. Based on this and his recent work-up the patient will be admitted to the hospital. Fortunately we managed to have a bed available at this moment here. Case discussed with Dr. Guerita mercer who will assume care we will obtain lab work and an ABG from today as well as a follow-up chest x-ray. Departure - Departure Time of Disposition: 17:05 Disposition: Admitted As Inpatient 66 Clinical Impression: COVID-19, Pneumonia due to COVID-19 virus - Discharge Information Referrals: Hilton Webster MD [Primary Care Provider] - Forms: ED Department Discharge Sepsis Event Note (ED) - Evaluation Sepsis Screening Result: No Definite Risk - Focused Exam Vital Signs: Vital Signs Temp Pulse Resp BP Pulse Ox 03/15/20 14:49 36.8 C 76 18 130/74 92 L - My Orders Last 24 Hours: My Active Orders 03/15/20 15:15 Nurse Communication: Isolation [RC] ASDIRECTED Isolation [COMM] Routine 03/15/20 16:59 Chest 1V Frontal [CR] Stat 03/15/20 17:05 ABG [BLOOD GAS ARTERIAL] [BG] Stat 03/15/20 17:13 CBC WITH MANUAL DIFF [HEME] Stat COMPREHENSIVE METABOLIC PN,CMP [CHEM] Stat FERRITIN [CHEM] Stat LACTATE DEHYDROGENASE,LDH [CHEM] Stat - Assessment/Plan Last 24 Hours: My Active Orders 03/15/20 15:15 Nurse Communication: Isolation [RC] ASDIRECTED Isolation [COMM] Routine 03/15/20 16:59 Chest 1V Frontal [CR] Stat 03/15/20 17:05 ABG [BLOOD GAS ARTERIAL] [BG] Stat 03/15/20 17:13 CBC WITH MANUAL DIFF [HEME] Stat COMPREHENSIVE METABOLIC PN,CMP [CHEM] Stat FERRITIN [CHEM] Stat LACTATE DEHYDROGENASE,LDH [CHEM] Stat
[2020-03-15] MEDS ORDERED: Ondansetron 4 MG Tab.DIS PO PRN (19:35)
--- NOTE | 2020-03-15 20:02 | PCM.HP.2 ---
H&P History of Present Illness - General Date of Service: 03/15/20 Admit Problem/Dx: Admission Diagnosis/Problem Admission Diagnosis/Problem Hypoxia Source of Information: Patient History Limitations: Reports: No Limitations - History of Present Illness Initial Comments - Free Text/Narative: 64 year old male with known diagnosis of Covid-19 PNA presents for a third time to [facility] ED. The patient's PCP called the ED and stated that the patient is hypoxic. He was originally diagnosed on 03/07/2020. The testing was performed on 03/05/2020. He continues to be SOB, has a persistent dry cough and malaise. Patient admits to subjective fever; ED evaluation documented hypoxia. The patient will be admitted for Covid-19 PNA with hypoxia, failed OP conservative supportive treatment. Onset of Symptoms: Reports: Gradual Duration of Symptoms: Reports: Week(s):, Getting Worse Location: Reports: Chest Quality: Reports: Same as Previous Episode Severity: Moderate Improves with: Reports: None Worsens with: Reports: None Context: Reports: Sick Contact Associated Symptoms: Reports: Chest Pain, Cough, Shortness of Breath, Weakness Chest Pain Score (Numeric/FACES): 4 - Related Data Allergies/Adverse Reactions: Allergies Allergy/AdvReac Type Severity Reaction Status Date / Time iodine Allergy Severe Other Verified 03/15/20 20:08 clarithromycin AdvReac Severe Nausea Verified 03/15/20 20:08 Home Medications: Home Meds Benazepril [Lotensin] 10 mg PO DAILY 03/11/19 [History] Simvastatin [Zocor] 10 mg PO BEDTIME 03/11/19 [History] Triamterene/Hydrochlorothiazid [Triamterene-HCTZ 37.5-25 MG] 1 each PO BEDTIME 03/11/19 [History] allopurinoL [Zyloprim] 100 mg PO DAILY 03/11/19 [History] Ondansetron [Zofran ODT] 1 tab PO Q8H PRN #10 tab.dis 03/13/20 [Rx] Cholecalciferol (Vitamin D3) [Vitamin D] 1 tab PO DAILY 03/15/20 [History] Multivitamin [Multivitamins] 1 tab PO DAILY 03/15/20 [History] Past Medical History Cardiovascular History: Reports: High Cholesterol, Hypertension Respiratory History: Reports: Sleep Apnea Gastrointestinal History: Reports: GERD Genitourinary History: Reports: Renal Calculus Endocrine/Metabolic History: Reports: Obesity/BMI 30+ - Infectious Disease History Infectious Disease History: Reports: Novel Coronavirus - Past Surgical History HEENT Surgical History: Reports: Naso-Sinus Surgery, Oral Surgery GI Surgical History: Reports: Cholecystectomy Male Surgical History: Reports: Lithotripsy (ESWL), Renal Calculus Social & Family History - Tobacco Use Tobacco Use Status *Q: Unknown Ever Used Tobacco - Caffeine Use Caffeine Use: Reports: None - Living Situation & Occupation Living situation: Reports: , with Spouse Occupation: Retired H&P Review of Systems - Review of Systems: Review Of Systems: See Below General: Reports: Fever, Malaise, Weakness HEENT: Reports: No Symptoms Pulmonary: Reports: Shortness of Breath Cardiovascular: Reports: Chest Pain Gastrointestinal: Reports: No Symptoms Genitourinary: Reports: No Symptoms Musculoskeletal: Reports: No Symptoms Skin: Reports: No Symptoms Psychiatric: Reports: No Symptoms Neurological: Reports: No Symptoms Hematologic/Lymphatic: Reports: No Symptoms Immunologic: Reports: No Symptoms Exam - Exam Exam: See Below - Vital Signs Vital Signs: Last Vital Signs Temp 36.8 C 03/15/20 14:49 Pulse 76 03/15/20 14:49 Resp 18 03/15/20 14:49 BP 130/74 03/15/20 14:49 Pulse Ox 92 L 03/15/20 14:49 Weight: 110.223 kg - Exam Quality Assessment: Supplemental Oxygen General: Alert, Oriented, Cooperative HEENT: EOMI, Nares Patent, Pupils Equal, Pupils Reactive, PERRLA Neck: Trachea Midline Lungs: Normal Respiratory Effort, Decreased Breath Sounds Cardiovascular: Regular Rate, Regular Rhythm GI/Abdominal Exam: Normal Bowel Sounds, Soft (Male) Exam: Deferred Rectal (Males) Exam: Deferred Back Exam: Normal Inspection Extremities: Normal Inspection, Normal Capillary Refill Skin: Warm, Dry Neurological: Cranial Nerves Intact Neuro Extensive - Mental Status: Alert, Oriented x3, Normal Mood/Affect Neuro Extensive - Motor, Sensory, Reflexes: CN II-XII Intact Psychiatric: Alert, Normal Affect, Normal Mood - Patient Data Lab Results Last 24 hrs: Laboratory Results - last 24 hr 03/15/20 03/15/20 03/15/20 Range/Units 16:25 17:13 17:13 WBC 8.93 (4.23-9.07) K/mm3 RBC 4.83 (4.63-6.08) M/mm3 Hgb 13.5 L (13.7-17.5) gm/dl Hct 41.3 (40.1-51.0) % MCV 85.5 (79.0-92.2) fl MCH 28.0 (25.7-32.2) pg MCHC 32.7 (32.2-35.5) g/dl RDW Std Deviation 42.4 (35.1-43.9) fL Plt Count 246 (163-337) K/mm3 MPV 9.3 L (9.4-12.3) fl Neutrophils % (Manual) 67 H (40-60) % Band Neutrophils % 0 (0-10) % Lymphocytes % (Manual) 25 (20-40) % Atypical Lymphs % 0 % Monocytes % (Manual) 8 (2-10) % Eosinophils % (Manual) 0 L (0.8-7.0) % Basophils % (Manual) 0 L (0.2-1.2) Platelet Estimate Adequate RBC Morph Comment Normal Puncture Site ABG pH (7.35-7.45) ABG pCO2 (35.0-45.0) mmHg ABG pO2 (80.0-100.0) mmHg ABG HCO3 (22.0-26.0) meq/L ABG O2 Saturation (96.0-97.0) % ABG Base Excess (-2-2.0) Marcus Test A-a Gradient mmHg O2 Delivery Device FiO2 (21.00-100.00) % Sodium 138 (136-145) mEq/L Potassium 3.8 (3.5-5.1) mEq/L Chloride 100 (98-107) mEq/L Carbon Dioxide 29 (21-32) mEq/L Anion Gap 12.8 (5-15) BUN 12 (7-18) mg/dL Creatinine 0.9 (0.7-1.3) mg/dL Est Cr Clr Drug Dosing 85.62 mL/min Estimated GFR (MDRD) > 60 (>60) mL/min BUN/Creatinine Ratio 13.3 L (14-18) Glucose 114 (80-115) mg/dL Calcium 9.2 (8.5-10.1) mg/dL Ferritin (26-388) ng/ml Total Bilirubin 0.8 (0.2-1.0) mg/dL AST 26 (15-37) U/L ALT 37 (16-63) U/L Alkaline Phosphatase 57 (46-116) U/L Lactate Dehydrogenase 231 H (85-227) U/L Total Protein 7.6 (6.4-8.2) g/dl Albumin 3.3 L (3.4-5.0) g/dl Globulin 4.3 gm/dL Albumin/Globulin Ratio 0.8 L (1-2) Urine Color Yellow (Yellow) Urine Appearance Clear (Clear) Urine pH 6.0 (5.0-8.0) Ur Specific [place] 1.015 (1.005-1.030) Urine Protein Negative (Negative) Urine Glucose (UA) Negative (Negative) Urine Ketones Negative (Negative) Urine Occult Blood Negative (Negative) Urine Nitrite Negative (Negative) Urine Bilirubin Negative (Negative) Urine Urobilinogen 0.2 (0.2-1.0) Ur Leukocyte Esterase Negative (Negative) 03/15/20 03/15/20 Range/Units 17:13 17:46 WBC (4.23-9.07) K/mm3 RBC (4.63-6.08) M/mm3 Hgb (13.7-17.5) gm/dl Hct (40.1-51.0) % MCV (79.0-92.2) fl MCH (25.7-32.2) pg MCHC (32.2-35.5) g/dl RDW Std Deviation (35.1-43.9) fL Plt Count (163-337) K/mm3 MPV (9.4-12.3) fl Neutrophils % (Manual) (40-60) % Band Neutrophils % (0-10) % Lymphocytes % (Manual) (20-40) % Atypical Lymphs % % Monocytes % (Manual) (2-10) % Eosinophils % (Manual) (0.8-7.0) % Basophils % (Manual) (0.2-1.2) Platelet Estimate RBC Morph Comment Puncture Site Lt radial ABG pH 7.48 H (7.35-7.45) ABG pCO2 34.8 L (35.0-45.0) mmHg ABG pO2 70.0 L (80.0-100.0) mmHg ABG HCO3 25.5 (22.0-26.0) meq/L ABG O2 Saturation 93.5 L (96.0-97.0) % ABG Base Excess 2.6 H (-2-2.0) Marcus Test Positive A-a Gradient 36 mmHg O2 Delivery Device Room air FiO2 21.00 (21.00-100.00) % Sodium (136-145) mEq/L Potassium (3.5-5.1) mEq/L Chloride (98-107) mEq/L Carbon Dioxide (21-32) mEq/L Anion Gap (5-15) BUN (7-18) mg/dL Creatinine (0.7-1.3) mg/dL Est Cr Clr Drug Dosing mL/min Estimated GFR (MDRD) (>60) mL/min BUN/Creatinine Ratio (14-18) Glucose (80-115) mg/dL Calcium (8.5-10.1) mg/dL Ferritin 2549 H (26-388) ng/ml Total Bilirubin (0.2-1.0) mg/dL AST (15-37) U/L ALT (16-63) U/L Alkaline Phosphatase (46-116) U/L Lactate Dehydrogenase (85-227) U/L Total Protein (6.4-8.2) g/dl Albumin (3.4-5.0) g/dl Globulin gm/dL Albumin/Globulin Ratio (1-2) Urine Color (Yellow) Urine Appearance (Clear) Urine pH (5.0-8.0) Ur Specific [place] (1.005-1.030) Urine Protein (Negative) Urine Glucose (UA) (Negative) Urine Ketones (Negative) Urine Occult Blood (Negative) Urine Nitrite (Negative) Urine Bilirubin (Negative) Urine Urobilinogen (0.2-1.0) Ur Leukocyte Esterase (Negative) Result Diagrams: 03/16/20 04:20 03/16/20 04:20 Sepsis Event Note - Evaluation Sepsis Screening Result: No Definite Risk - Focused Exam Vital Signs: Vital Signs Temp Pulse Resp BP Pulse Ox 03/15/20 14:49 36.8 C 76 18 130/74 92 L - Problem List (1) Atypical chest pain SNOMED Code(s): 106692901 ICD Code: R07.89 - OTHER CHEST PAIN Status: Acute Current Visit: No (2) COVID-19 SNOMED Code(s): 295875298 ICD Code: U07.1 - COVID-19 Status: Acute Current Visit: No (3) Pneumonia due to COVID-19 virus SNOMED Code(s): 577269363940917643 ICD Code: U07.1 - COVID-19; J12.89 - OTHER VIRAL PNEUMONIA Status: Acute Current Visit: No Problem List Initiated/Reviewed/Updated: Yes Orders Last 24hrs: Active Orders 24 hr Category Date Time Status Patient Status [ADT] Routine ADT 03/15/20 18:24 Active Activity as Tolerated [RC] .Routine Care 03/15/20 19:38 Ordered Nurse Communication: Isolation [RC] ASDIRECTED Care 03/15/20 15:15 Active Vital Signs [RC] PER UNIT ROUTINE Care 03/15/20 19:37 Ordered Chest 1V Frontal [CR] Stat Exams 03/15/20 16:59 Taken BMP [BASIC METABOLIC PANEL,BMP] [CHEM] DAILY Lab 03/16/20 06:00 Ordered BMP [BASIC METABOLIC PANEL,BMP] [CHEM] DAILY Lab 03/17/20 06:00 Ordered BMP [BASIC METABOLIC PANEL,BMP] [CHEM] DAILY Lab 03/18/20 06:00 Ordered CBC W/O DIFF,HEMOGRAM [HEME] DAILY Lab 03/15/20 20:00 Ordered CBC WITH AUTO DIFF [HEME] DAILY Lab 03/15/20 20:00 Ordered CRP [C-REACTIVE PROTEIN] [CHEM] Routine Lab 03/16/20 06:00 Ordered MAGNESIUM [CHEM] Routine Lab 03/16/20 06:00 Ordered PROCALCITONIN [REF] Routine Lab 03/16/20 06:00 Ordered TROPONIN I [CHEM] DAILY Lab 03/16/20 19:39 Ordered TROPONIN I [CHEM] DAILY Lab 03/17/20 19:39 Ordered Aspirin [Ecotrin] Med 03/16/20 09:00 Ordered 325 mg PO DAILY Benazepril [Lotensin] Med 03/16/20 09:00 Active 10 mg PO DAILY Enoxaparin [Lovenox] Med 03/15/20 20:00 Ordered 30 mg SUBCUT Q12H Ondansetron [Zofran ODT] Med 03/15/20 19:35 Ordered 4 mg PO Q8H PRN Pantoprazole [ProTONIX] Med 03/16/20 09:00 Ordered 40 mg PO DAILY Remdesivir (Eua) [Remdesivir (EUA)] 200 mg Med 03/15/20 19:51 Ordered Sodium Chloride 0.9% [Normal Saline] 250 ml IV ONETIME Simvastatin [Zocor] Med 03/15/20 21:00 Ordered 10 mg PO BEDTIME allopurinoL [Zyloprim] Med 03/16/20 09:00 Ordered 100 mg PO DAILY dexAMETHasone Med 03/15/20 22:00 Ordered 6 mg PO DAILY Isolation [COMM] Routine Oth 03/15/20 15:15 Ordered RT Supplemental Oxygen Titration [RESPCARE] Routine Oth 03/15/20 19:37 Ordered Code Status [Resuscitation Status] Routine Resus Stat 03/15/20 19:41 Ordered Medication Orders Allopurinol (Zyloprim) 100 mg PO DAILY CHARLES Aspirin (Ecotrin) 325 mg PO DAILY CHARLES Benazepril HCl (Lotensin) 10 mg PO DAILY CHARLES Dexamethasone (Dexamethasone) 6 mg PO DAILY CHARLES Enoxaparin Sodium (Lovenox) 30 mg SUBCUT Q12H CHARLES Remdesivir 200 mg/ Sodium (Chloride) 250 mls @ 250 mls/hr IV ONETIME ONE Stop: 03/15/20 19:52 Ondansetron HCl (Zofran Odt) 4 mg PO Q8H PRN PRN Reason: Nausea/Vomiting Pantoprazole Sodium (Protonix) 40 mg PO DAILY CHARLES Simvastatin (Zocor) 10 mg PO BEDTIME CHARLES Assessment/Plan Comment:: Impression: Covid-19 pneumonia Hypoxemia; failed OP supportive treatment (SARS d/t Covid 19 infection) Plan: Empiric Zithromax x 3 days. Cautious hydration Decadron Remdesivir BS ac, hs D Dimer LFT CRP, procalcitonin Anticoagulation - Mortality Measure Prognosis:: Good
[2020-03-15] MEDS ORDERED: Dexamethasone 4 MG Tab PO SCH (22:00)
[2020-03-15] MEDS: Enoxaparin 30 MG/0.3 ML Syringe SUBCUT SCH (22:53)
[2020-03-15] MEDS: Simvastatin 10 MG Tab PO SCH (22:53)
--- NOTE | 2020-03-16 09:34 | CR ---
PROCEDURE INFORMATION: Exam: XR Chest, 1 View Exam date and time: 03/15/2020 5:16 PM Age: 64 years old Clinical indication: Cough and shortness of breath and other: Covid follow up TECHNIQUE: Imaging protocol: XR of the chest Views: 1 view. COMPARISON: DX Chest 2V 03/14/2020 9:40 PM FINDINGS: Lungs: Increasing patchy interstitial and alveolar opacities in the left lower lobe and more diffusely in the right upper lobe. Pleural space: No pleural effusion. No pneumothorax. Heart/Mediastinum: Stable mild enlargement of the cardiac silhouette. Mediastinal contours are unremarkable. Bones/joints: Unremarkable for age. IMPRESSION: 1. Increasing patchy interstitial and alveolar opacities in the left lower lobe and more diffusely in the right upper lobe. Findings are suspicious for worsening pneumonia, including COVID pneumonia (patient is reportedly COVID positive per history). Recommend followup chest x- ray to ensure resolution. 2. Incidental/nonacute findings are listed in the report. Thank you for allowing us to participate in the care of your patient. Dictated and Authenticated by: Dunia Landa MD 03/15/2020 7:16 PM Central Time ([place] & [place]) ANAN[place]
[2020-03-16] MEDS: Aspirin 325 MG Tab.EC PO SCH (10:00)
[2020-03-16] MEDS: Cholecalciferol (Vitamin D3) 5,000 UNIT Cap PO SCH (10:00)
[2020-03-16] MEDS: Benazepril 10 MG Tab PO SCH (10:00)
[2020-03-16] MEDS: Pantoprazole 40 MG Tab.CR PO SCH (10:00)
[2020-03-16] MEDS: Allopurinol 100 MG Tab PO SCH (10:00)
[2020-03-16] MEDS: Enoxaparin 30 MG/0.3 ML Syringe SUBCUT SCH ×2 (10:00→20:30)
[2020-03-16] MEDS ORDERED: Azithromycin 500 MG in Sodium Chloride 0.9% 250 ML IV ONE (10:00)
--- NOTE | 2020-03-16 12:02 | PCM.PN ---
- General Info Date of Service: 03/16/20 Functional Status: Reports: Tolerating Diet, Ambulating, Urinating - Review of Systems General: Reports: No Symptoms HEENT: Reports: No Symptoms Pulmonary: Reports: Pleuritic Chest Pain Cardiovascular: Reports: No Symptoms Gastrointestinal: Reports: No Symptoms Genitourinary: Reports: No Symptoms Musculoskeletal: Reports: No Symptoms Skin: Reports: No Symptoms Neurological: Reports: No Symptoms Psychiatric: Reports: No Symptoms - Patient Data Vitals - Most Recent: Last Vital Signs Temp 36.4 C 03/16/20 07:48 Pulse 61 03/16/20 07:48 Resp 16 03/16/20 07:48 BP 134/74 03/16/20 10:00 Pulse Ox 91 L 03/16/20 08:20 Weight - Most Recent: 110.223 kg I&O - Last 24 Hours: Intake & Output 03/15/20 03/16/20 03/16/20 22:59 06:59 14:59 Intake Total 800 Output Total 800 Balance 0 Lab Results Last 24 Hours: Laboratory Results - last 24 hr 03/15/20 03/15/20 03/15/20 Range/Units 16:25 17:13 17:13 WBC 8.93 (4.23-9.07) K/mm3 RBC 4.83 (4.63-6.08) M/mm3 Hgb 13.5 L (13.7-17.5) gm/dl Hct 41.3 (40.1-51.0) % MCV 85.5 (79.0-92.2) fl MCH 28.0 (25.7-32.2) pg MCHC 32.7 (32.2-35.5) g/dl RDW Std Deviation 42.4 (35.1-43.9) fL Plt Count 246 (163-337) K/mm3 MPV 9.3 L (9.4-12.3) fl Neut % (Auto) (34.0-67.9) % Lymph % (Auto) (21.8-53.1) % [place] % (Auto) (5.3-12.2) % Eos % (Auto) (0.8-7.0) Baso % (Auto) (0.1-1.2) % Neut # (Auto) (1.78-5.38) K/mm3 Lymph # (Auto) (1.32-3.57) K/mm3 [place] # (Auto) (0.30-0.82) K/mm3 Eos # (Auto) (0.04-0.54) K/mm3 Baso # (Auto) (0.01-0.08) K/mm3 Neutrophils % (Manual) 67 H (40-60) % Band Neutrophils % 0 (0-10) % Lymphocytes % (Manual) 25 (20-40) % Atypical Lymphs % 0 % Monocytes % (Manual) 8 (2-10) % Eosinophils % (Manual) 0 L (0.8-7.0) % Basophils % (Manual) 0 L (0.2-1.2) Manual Slide Review Platelet Estimate Adequate RBC Morph Comment Normal D-Dimer, Quantitative (0.19-0.50) mg/L Puncture Site ABG pH (7.35-7.45) ABG pCO2 (35.0-45.0) mmHg ABG pO2 (80.0-100.0) mmHg ABG HCO3 (22.0-26.0) meq/L ABG O2 Saturation (96.0-97.0) % ABG Base Excess (-2-2.0) Marcus Test A-a Gradient mmHg O2 Delivery Device FiO2 (21.00-100.00) % Sodium 138 (136-145) mEq/L Potassium 3.8 (3.5-5.1) mEq/L Chloride 100 (98-107) mEq/L Carbon Dioxide 29 (21-32) mEq/L Anion Gap 12.8 (5-15) BUN 12 (7-18) mg/dL Creatinine 0.9 (0.7-1.3) mg/dL Est Cr Clr Drug Dosing 85.62 mL/min Estimated GFR (MDRD) > 60 (>60) mL/min BUN/Creatinine Ratio 13.3 L (14-18) Glucose 114 (80-115) mg/dL Calcium 9.2 (8.5-10.1) mg/dL Magnesium (1.8-2.4) mg/dl Ferritin (26-388) ng/ml Total Bilirubin 0.8 (0.2-1.0) mg/dL AST 26 (15-37) U/L ALT 37 (16-63) U/L Alkaline Phosphatase 57 (46-116) U/L Lactate Dehydrogenase 231 H (85-227) U/L Troponin I (0.00-0.056) ng/mL C-Reactive Protein (<1.0) mg/dL Total Protein 7.6 (6.4-8.2) g/dl Albumin 3.3 L (3.4-5.0) g/dl Globulin 4.3 gm/dL Albumin/Globulin Ratio 0.8 L (1-2) Urine Color Yellow (Yellow) Urine Appearance Clear (Clear) Urine pH 6.0 (5.0-8.0) Ur Specific [employer] 1.015 (1.005-1.030) Urine Protein Negative (Negative) Urine Glucose (UA) Negative (Negative) Urine Ketones Negative (Negative) Urine Occult Blood Negative (Negative) Urine Nitrite Negative (Negative) Urine Bilirubin Negative (Negative) Urine Urobilinogen 0.2 (0.2-1.0) Ur Leukocyte Esterase Negative (Negative) 03/15/20 03/15/20 03/16/20 Range/Units 17:13 17:46 04:20 WBC (4.23-9.07) K/mm3 RBC (4.63-6.08) M/mm3 Hgb (13.7-17.5) gm/dl Hct (40.1-51.0) % MCV (79.0-92.2) fl MCH (25.7-32.2) pg MCHC (32.2-35.5) g/dl RDW Std Deviation (35.1-43.9) fL Plt Count (163-337) K/mm3 MPV (9.4-12.3) fl Neut % (Auto) (34.0-67.9) % Lymph % (Auto) (21.8-53.1) % [place] % (Auto) (5.3-12.2) % Eos % (Auto) (0.8-7.0) Baso % (Auto) (0.1-1.2) % Neut # (Auto) (1.78-5.38) K/mm3 Lymph # (Auto) (1.32-3.57) K/mm3 [place] # (Auto) (0.30-0.82) K/mm3 Eos # (Auto) (0.04-0.54) K/mm3 Baso # (Auto) (0.01-0.08) K/mm3 Neutrophils % (Manual) (40-60) % Band Neutrophils % (0-10) % Lymphocytes % (Manual) (20-40) % Atypical Lymphs % % Monocytes % (Manual) (2-10) % Eosinophils % (Manual) (0.8-7.0) % Basophils % (Manual) (0.2-1.2) Manual Slide Review Platelet Estimate RBC Morph Comment D-Dimer, Quantitative (0.19-0.50) mg/L Puncture Site Lt radial ABG pH 7.48 H (7.35-7.45) ABG pCO2 34.8 L (35.0-45.0) mmHg ABG pO2 70.0 L (80.0-100.0) mmHg ABG HCO3 25.5 (22.0-26.0) meq/L ABG O2 Saturation 93.5 L (96.0-97.0) % ABG Base Excess 2.6 H (-2-2.0) Marcus Test Positive A-a Gradient 36 mmHg O2 Delivery Device Room air FiO2 21.00 (21.00-100.00) % Sodium 139 (136-145) mEq/L Potassium 4.3 (3.5-5.1) mEq/L Chloride 101 (98-107) mEq/L Carbon Dioxide 29 (21-32) mEq/L Anion Gap 13.3 (5-15) BUN 15 (7-18) mg/dL Creatinine 1.0 (0.7-1.3) mg/dL Est Cr Clr Drug Dosing 77.06 mL/min Estimated GFR (MDRD) > 60 (>60) mL/min BUN/Creatinine Ratio 15.0 (14-18) Glucose 154 H (80-115) mg/dL Calcium 9.1 (8.5-10.1) mg/dL Magnesium 2.2 (1.8-2.4) mg/dl Ferritin 2549 H (26-388) ng/ml Total Bilirubin (0.2-1.0) mg/dL AST 27 (15-37) U/L ALT 42 (16-63) U/L Alkaline Phosphatase (46-116) U/L Lactate Dehydrogenase (85-227) U/L Troponin I (0.00-0.056) ng/mL C-Reactive Protein 8.3 H* (<1.0) mg/dL Total Protein (6.4-8.2) g/dl Albumin (3.4-5.0) g/dl Globulin gm/dL Albumin/Globulin Ratio (1-2) Urine Color (Yellow) Urine Appearance (Clear) Urine pH (5.0-8.0) Ur Specific [employer] (1.005-1.030) Urine Protein (Negative) Urine Glucose (UA) (Negative) Urine Ketones (Negative) Urine Occult Blood (Negative) Urine Nitrite (Negative) Urine Bilirubin (Negative) Urine Urobilinogen (0.2-1.0) Ur Leukocyte Esterase (Negative) 03/16/20 03/16/20 03/16/20 Range/Units 04:20 04:20 08:40 WBC 8.55 (4.23-9.07) K/mm3 RBC 4.94 (4.63-6.08) M/mm3 Hgb 13.6 L (13.7-17.5) gm/dl Hct 42.7 (40.1-51.0) % MCV 86.4 (79.0-92.2) fl MCH 27.5 (25.7-32.2) pg MCHC 31.9 L (32.2-35.5) g/dl RDW Std Deviation 42.8 (35.1-43.9) fL Plt Count 280 (163-337) K/mm3 MPV 10.1 (9.4-12.3) fl Neut % (Auto) 84.9 H (34.0-67.9) % Lymph % (Auto) 11.1 L (21.8-53.1) % [place] % (Auto) 2.7 L (5.3-12.2) % Eos % (Auto) 0.1 L (0.8-7.0) Baso % (Auto) 0.4 (0.1-1.2) % Neut # (Auto) 7.26 H (1.78-5.38) K/mm3 Lymph # (Auto) 0.95 L (1.32-3.57) K/mm3 [place] # (Auto) 0.23 L (0.30-0.82) K/mm3 Eos # (Auto) 0.01 L (0.04-0.54) K/mm3 Baso # (Auto) 0.03 (0.01-0.08) K/mm3 Neutrophils % (Manual) (40-60) % Band Neutrophils % (0-10) % Lymphocytes % (Manual) (20-40) % Atypical Lymphs % % Monocytes % (Manual) (2-10) % Eosinophils % (Manual) (0.8-7.0) % Basophils % (Manual) (0.2-1.2) Manual Slide Review Abnormal smear Platelet Estimate RBC Morph Comment D-Dimer, Quantitative 0.36 (0.19-0.50) mg/L Puncture Site ABG pH (7.35-7.45) ABG pCO2 (35.0-45.0) mmHg ABG pO2 (80.0-100.0) mmHg ABG HCO3 (22.0-26.0) meq/L ABG O2 Saturation (96.0-97.0) % ABG Base Excess (-2-2.0) Marcus Test A-a Gradient mmHg O2 Delivery Device FiO2 (21.00-100.00) % Sodium (136-145) mEq/L Potassium (3.5-5.1) mEq/L Chloride (98-107) mEq/L Carbon Dioxide (21-32) mEq/L Anion Gap (5-15) BUN (7-18) mg/dL Creatinine (0.7-1.3) mg/dL Est Cr Clr Drug Dosing mL/min Estimated GFR (MDRD) (>60) mL/min BUN/Creatinine Ratio (14-18) Glucose (80-115) mg/dL Calcium (8.5-10.1) mg/dL Magnesium (1.8-2.4) mg/dl Ferritin (26-388) ng/ml Total Bilirubin (0.2-1.0) mg/dL AST (15-37) U/L ALT (16-63) U/L Alkaline Phosphatase (46-116) U/L Lactate Dehydrogenase (85-227) U/L Troponin I < 0.017 (0.00-0.056) ng/mL C-Reactive Protein (<1.0) mg/dL Total Protein (6.4-8.2) g/dl Albumin (3.4-5.0) g/dl Globulin gm/dL Albumin/Globulin Ratio (1-2) Urine Color (Yellow) Urine Appearance (Clear) Urine pH (5.0-8.0) Ur Specific [employer] (1.005-1.030) Urine Protein (Negative) Urine Glucose (UA) (Negative) Urine Ketones (Negative) Urine Occult Blood (Negative) Urine Nitrite (Negative) Urine Bilirubin (Negative) Urine Urobilinogen (0.2-1.0) Ur Leukocyte Esterase (Negative) Med Orders - Current: Current Medications Allopurinol (Zyloprim) 100 mg PO DAILY [facility] Last Admin: 03/16/20 10:00 Dose: 100 mg Documented by: Aspirin (Ecotrin) 325 mg PO DAILY [facility] Last Admin: 03/16/20 10:00 Dose: 325 mg Documented by: Benazepril HCl (Lotensin) 10 mg PO DAILY [facility] Last Admin: 03/16/20 10:00 Dose: 10 mg Documented by: Cholecalciferol (Vitamin D3) 5,000 unit PO DAILY [facility] Last Admin: 03/16/20 10:00 Dose: 5,000 unit Documented by: Dexamethasone (Dexamethasone) 6 mg PO Q24H [facility] Stop: 03/24/20 22:01 Enoxaparin Sodium (Lovenox) 30 mg SUBCUT Q12H [facility] Last Admin: 03/16/20 10:00 Dose: 30 mg Documented by: Remdesivir 100 mg/ Sodium (Chloride) 100 mls @ 100 mls/hr IV Q24H [facility] Stop: 03/19/20 22:59 Azithromycin 500 mg/ Sodium (Chloride) 250 mls @ 250 mls/hr IV Q24H [facility] Stop: 03/18/20 10:59 Ondansetron HCl (Zofran Odt) 4 mg PO Q8H PRN PRN Reason: Nausea/Vomiting Pantoprazole Sodium (Protonix) 40 mg PO DAILY [facility] Last Admin: 03/16/20 10:00 Dose: 40 mg Documented by: Simvastatin (Zocor) 10 mg PO BEDTIME [facility] Last Admin: 03/15/20 22:53 Dose: 10 mg Documented by: Discontinued Medications Dexamethasone (Dexamethasone) 6 mg PO DAILY [facility] Last Admin: 03/15/20 22:54 Dose: 6 mg Documented by: Remdesivir 200 mg/ Sodium (Chloride) 250 mls @ 250 mls/hr IV ONETIME ONE Stop: 03/15/20 22:29 Last Admin: 03/15/20 22:53 Dose: 250 mls/hr Documented by: Azithromycin 500 mg/ Sodium (Chloride) 250 mls @ 250 mls/hr IV ONETIME ONE Stop: 03/16/20 10:59 Last Admin: 03/16/20 10:01 Dose: 250 mls/hr Documented by: - Exam Quality Assessment: DVT Prophylaxis General: Alert, Oriented, Cooperative, No Acute Distress HEENT: Pupils Equal, Pupils Reactive, EOMI Neck: Trachea Midline, No JVD Lungs: Normal Respiratory Effort, Other (improved BS) GI/Abdominal Exam: Normal Bowel Sounds, Soft, Non-Tender, No Distention (Male) Exam: Deferred Back Exam: Normal Inspection Extremities: Normal Inspection, Normal Range of Motion Skin: Warm, Dry Neurological: No New Focal Deficit, Normal Gait, Normal Speech Psy/Mental Status: Alert, Normal Affect, Normal Mood Sepsis Event Note - Evaluation Sepsis Screening Result: No Definite Risk - Focused Exam Vital Signs: Vital Signs Temp Pulse Resp BP Pulse Ox Pulse Ox 03/16/20 10:00 134/74 03/16/20 08:20 91 L 03/16/20 07:48 36.4 C 61 16 134/74 93 L 03/16/20 04:49 36.2 C 03/16/20 04:42 69 22 H 140/88 90 L 03/16/20 00:34 37.2 C 69 22 H 95/78 91 L - Problem List & Annotations (1) Atypical chest pain SNOMED Code(s): 304750262 Code(s): R07.89 - OTHER CHEST PAIN Status: Acute Current Visit: No (2) COVID-19 SNOMED Code(s): 166666991 Code(s): U07.1 - COVID-19 Status: Acute Current Visit: No (3) Pneumonia due to COVID-19 virus SNOMED Code(s): 837470837270834015 Code(s): U07.1 - COVID-19; J12.89 - OTHER VIRAL PNEUMONIA Status: Acute Current Visit: No - Problem List Review Problem List Initiated/Reviewed/Updated: Yes - My Orders Last 24 Hours: My Active Orders 03/15/20 19:35 Ondansetron [Zofran ODT] 4 mg PO Q8H PRN 03/15/20 19:37 Vital Signs [RC] Q4HR RT Supplemental Oxygen Titration [RESPCARE] Routine 03/15/20 19:38 Activity as Tolerated [RC] .Routine 03/15/20 19:41 Code Status [Resuscitation Status] Routine 03/15/20 20:00 Enoxaparin [Lovenox] 30 mg SUBCUT Q12H 03/15/20 21:00 Simvastatin [Zocor] 10 mg PO BEDTIME 03/15/20 22:42 RT Incentive Spirometry [RC] ASDIRECTED 03/15/20 22:43 Acapella [RT Chest Physiotherapy] [RC] ASDIRECTED 03/16/20 04:20 PROCALCITONIN [REF] Routine 03/16/20 06:00 TROPONIN I [CHEM] DAILY 03/16/20 Breakfast Heart Healthy Diet [DIET] 03/16/20 09:00 Aspirin [Ecotrin] 325 mg PO DAILY Benazepril [Lotensin] 10 mg PO DAILY Cholecalciferol (Vitamin D3) [Vitamin D3] 5,000 unit PO DAILY Pantoprazole [ProTONIX] 40 mg PO DAILY allopurinoL [Zyloprim] 100 mg PO DAILY 03/16/20 22:00 Remdesivir (Eua) [Remdesivir (EUA)] 100 mg Sodium Chloride 0.9% [Normal Saline] 100 ml IV Q24H dexAMETHasone 6 mg PO Q24H 03/17/20 06:00 ALANINE AMINOTRANSFERASE,ALT [CHEM] DAILY ASPARTATE AMNIOTRANSFERASE,AST [CHEM] DAILY BMP [BASIC METABOLIC PANEL,BMP] [CHEM] DAILY TROPONIN I [CHEM] DAILY 03/17/20 10:00 Azithromycin [Zithromax] 500 mg Sodium Chloride 0.9% [Normal Saline (AdvBag)] 250 ml IV Q24H 03/18/20 06:00 ALANINE AMINOTRANSFERASE,ALT [CHEM] DAILY ASPARTATE AMNIOTRANSFERASE,AST [CHEM] DAILY BMP [BASIC METABOLIC PANEL,BMP] [CHEM] DAILY TROPONIN I [CHEM] DAILY - Plan Plan:: Impression: Covid-19 pneumonia Hypoxemia; failed OP supportive treatment (SARS d/t Covid 19 infection) Plan: Check mycoplasma Empiric Zithromax x 3 days. Cautious hydration Decadron Remdesivir x 5 days BS ac, hs D Dimer LFT CRP, procalcitonin Anticoagulation
[2020-03-16] MEDS: Simvastatin 10 MG Tab PO SCH (20:30)
[2020-03-16] MEDS: Dexamethasone 4 MG Tab PO SCH (20:30)
[2020-03-16] MEDS: REMDESIVIR (EUA) 100 MG in Sodium Chloride 0.9% 100 ML IV SCH (21:31)
[2020-03-17] MEDS: Dexamethasone 4 MG Tab PO SCH ×2 (05:57→20:57)
[2020-03-17] MEDS: Enoxaparin 30 MG/0.3 ML Syringe SUBCUT SCH ×3 (08:51→20:55)
[2020-03-17] MEDS: Cholecalciferol (Vitamin D3) 5,000 UNIT Cap PO SCH (08:52)
[2020-03-17] MEDS: Pantoprazole 40 MG Tab.CR PO SCH (08:52)
[2020-03-17] MEDS: Azithromycin 500 MG in Sodium Chloride 0.9% 250 ML IV SCH (08:52)
[2020-03-17] MEDS: Aspirin 325 MG Tab.EC PO SCH (08:52)
[2020-03-17] MEDS: Allopurinol 100 MG Tab PO SCH (08:52)
[2020-03-17] MEDS ORDERED: Azithromycin 500 MG in Sodium Chloride 0.9% 250 ML IV SCH (10:00)
--- NOTE | 2020-03-17 12:24 | PCM.PN ---
<Fred Jauregui M - Last Filed: 03/17/20 12:18> - General Info Date of Service: 03/17/20 Admission Dx/Problem (Free Text): Admission Diagnosis/Problem Admission Diagnosis/Problem Hypoxia Subjective Update: Patient is on room air. He states however that he is not feeling well today. He is having a lot of chest tightness and increased coughing that is nonproductive. Functional Status: Reports: Pain Controlled, Tolerating Diet, Ambulating, Urinating, Incentive Spirometry (Needs encouragement) - Review of Systems General: Reports: No Symptoms, Appetite HEENT: Reports: No Symptoms Pulmonary: Reports: Shortness of Breath, Pleuritic Chest Pain, Cough. Denies: Sputum, Wheezing Cardiovascular: Reports: Dyspnea on Exertion. Denies: Edema Gastrointestinal: Reports: No Symptoms. Denies: Diarrhea Genitourinary: Reports: No Symptoms Musculoskeletal: Reports: No Symptoms Skin: Reports: No Symptoms Neurological: Reports: No Symptoms Psychiatric: Reports: No Symptoms - Patient Data Vitals - Most Recent: Last Vital Signs Temp 97.9 F 03/17/20 12:12 Pulse 78 03/17/20 12:12 Resp 22 H 03/17/20 12:12 BP 110/79 03/17/20 12:12 Pulse Ox 91 L 03/17/20 12:12 Weight - Most Recent: 110.903 kg I&O - Last 24 Hours: Intake & Output 03/16/20 03/17/20 03/17/20 22:59 06:59 14:59 Intake Total 1610 500 Output Total 600 650 Balance 1010 -150 Lab Results Last 24 Hours: Laboratory Results - last 24 hr 03/16/20 03/16/20 03/17/20 Range/Units 04:20 15:02 04:42 WBC (4.23-9.07) K/mm3 RBC (4.63-6.08) M/mm3 Hgb (13.7-17.5) gm/dl Hct (40.1-51.0) % MCV (79.0-92.2) fl MCH (25.7-32.2) pg MCHC (32.2-35.5) g/dl RDW Std Deviation (35.1-43.9) fL Plt Count (163-337) K/mm3 MPV (9.4-12.3) fl D-Dimer, Quantitative 0.38 (0.19-0.50) mg/L Sodium 138 (136-145) mEq/L Potassium 3.8 (3.5-5.1) mEq/L Chloride 101 (98-107) mEq/L Carbon Dioxide 24 (21-32) mEq/L Anion Gap 16.8 H (5-15) BUN 17 (7-18) mg/dL Creatinine 0.9 (0.7-1.3) mg/dL Est Cr Clr Drug Dosing 85.62 mL/min Estimated GFR (MDRD) > 60 (>60) mL/min BUN/Creatinine Ratio 18.9 H (14-18) Glucose 164 H (80-115) mg/dL Calcium 8.8 (8.5-10.1) mg/dL AST 18 (15-37) U/L ALT 40 (16-63) U/L Troponin I < 0.017 (0.00-0.056) ng/mL C-Reactive Protein (<1.0) mg/dL Procalcitonin <0.05 (<0.10) ng/mL 03/17/20 03/17/20 03/17/20 Range/Units 04:42 04:42 04:42 WBC 10.95 H (4.23-9.07) K/mm3 RBC 4.73 (4.63-6.08) M/mm3 Hgb 13.2 L (13.7-17.5) gm/dl Hct 40.6 (40.1-51.0) % MCV 85.8 (79.0-92.2) fl MCH 27.9 (25.7-32.2) pg MCHC 32.5 (32.2-35.5) g/dl RDW Std Deviation 41.7 (35.1-43.9) fL Plt Count 305 (163-337) K/mm3 MPV 10.4 (9.4-12.3) fl D-Dimer, Quantitative 0.62 H (0.19-0.50) mg/L Sodium (136-145) mEq/L Potassium (3.5-5.1) mEq/L Chloride (98-107) mEq/L Carbon Dioxide (21-32) mEq/L Anion Gap (5-15) BUN (7-18) mg/dL Creatinine (0.7-1.3) mg/dL Est Cr Clr Drug Dosing mL/min Estimated GFR (MDRD) (>60) mL/min BUN/Creatinine Ratio (14-18) Glucose (80-115) mg/dL Calcium (8.5-10.1) mg/dL AST (15-37) U/L ALT (16-63) U/L Troponin I (0.00-0.056) ng/mL C-Reactive Protein 3.8 H* (<1.0) mg/dL Procalcitonin (<0.10) ng/mL Med Orders - Current: Current Medications Albuterol (Proventil Hfa) 0 gm INH Q2H PRN PRN Reason: wheezing/sob Allopurinol (Zyloprim) 100 mg PO DAILY [facility] Last Admin: 03/17/20 08:52 Dose: 100 mg Documented by: Aspirin (Ecotrin) 325 mg PO DAILY [facility] Last Admin: 03/17/20 08:52 Dose: 325 mg Documented by: Benazepril HCl (Lotensin) 10 mg PO DAILY [facility] Last Admin: 03/16/20 10:00 Dose: 10 mg Documented by: Cholecalciferol (Vitamin D3) 5,000 unit PO DAILY [facility] Last Admin: 03/17/20 08:52 Dose: 5,000 unit Documented by: Dexamethasone (Dexamethasone) 6 mg PO Q24H [facility] Stop: 03/24/20 22:01 Last Admin: 03/17/20 05:57 Dose: Not Given Documented by: Enoxaparin Sodium (Lovenox) 30 mg SUBCUT Q12H [facility] Last Admin: 03/17/20 08:51 Dose: 30 mg Documented by: Remdesivir 100 mg/ Sodium (Chloride) 100 mls @ 100 mls/hr IV Q24H [facility] Stop: 03/19/20 22:59 Last Admin: 03/16/20 21:31 Dose: 100 mls/hr Documented by: Azithromycin 500 mg/ Sodium (Chloride) 250 mls @ 250 mls/hr IV Q24H [facility] Stop: 03/18/20 09:59 Last Admin: 03/17/20 08:52 Dose: 250 mls/hr Documented by: Ondansetron HCl (Zofran Odt) 4 mg PO Q8H PRN PRN Reason: Nausea/Vomiting Pantoprazole Sodium (Protonix) 40 mg PO DAILY [facility] Last Admin: 03/17/20 08:52 Dose: 40 mg Documented by: Simvastatin (Zocor) 10 mg PO BEDTIME [facility] Last Admin: 03/16/20 20:30 Dose: 10 mg Documented by: Discontinued Medications Dexamethasone (Dexamethasone) 6 mg PO DAILY [facility] Last Admin: 03/15/20 22:54 Dose: 6 mg Documented by: Enoxaparin Sodium (Lovenox) 30 mg SUBCUT Q12H [facility] Last Admin: 03/16/20 20:30 Dose: 30 mg Documented by: Remdesivir 200 mg/ Sodium (Chloride) 250 mls @ 250 mls/hr IV ONETIME ONE Stop: 03/15/20 22:29 Last Admin: 03/15/20 22:53 Dose: 250 mls/hr Documented by: Azithromycin 500 mg/ Sodium (Chloride) 250 mls @ 250 mls/hr IV ONETIME ONE Stop: 03/16/20 10:59 Last Admin: 03/16/20 10:01 Dose: 250 mls/hr Documented by: Azithromycin 500 mg/ Sodium (Chloride) 250 mls @ 250 mls/hr IV Q24H [facility] Stop: 03/18/20 10:59 - Exam Quality Assessment: DVT Prophylaxis (Lovenox). No: Supplemental Oxygen (On room air) General: Alert, Oriented, Cooperative. No: No Acute Distress HEENT: Pupils Equal, Pupils Reactive, Mucous Membr. Moist/[place] Neck: Supple, Trachea Midline. No: Lymphadenopathy Lungs: Decreased Breath Sounds, Crackles (Right side posterior left side in the bases.) Cardiovascular: Regular Rate, Regular Rhythm, No Murmurs GI/Abdominal Exam: Normal Bowel Sounds, Soft, Non-Tender, No Distention (Male) Exam: Deferred Back Exam: Normal Inspection, Full Range of Motion Extremities: Normal Inspection, Normal Range of Motion, Non-Tender, No Pedal Edema, Normal Capillary Refill Peripheral Pulses: 2+: Radial (L), Radial (R), Dorsalis Pedis (L), Dorsalis Pedis (R) Skin: Warm, Dry, Intact Neurological: No New Focal Deficit Psy/Mental Status: Alert, Normal Affect, Normal Mood Sepsis Event Note - Evaluation Sepsis Screening Result: No Definite Risk - Focused Exam Vital Signs: Vital Signs Temp Temp Pulse Pulse Resp BP BP 03/17/20 12:12 97.9 F 78 22 H 110/79 03/17/20 12:05 97.9 F 70 110/97 H 03/17/20 08:10 97.5 F 67 20 127/88 03/17/20 07:59 03/17/20 04:43 98.1 F 65 17 131/70 Pulse Ox Pulse Ox 03/17/20 12:12 91 L 03/17/20 12:05 92 L 03/17/20 08:10 91 L 03/17/20 07:59 92 L 03/17/20 04:43 93 L - Problem List & Annotations (1) Atypical chest pain SNOMED Code(s): 397779164 Code(s): R07.89 - OTHER CHEST PAIN Status: Acute Priority: High Current Visit: Yes (2) COVID-19 SNOMED Code(s): 789217655 Code(s): U07.1 - COVID-19 Status: Acute Priority: High Current Visit: Yes (3) Pneumonia due to COVID-19 virus SNOMED Code(s): 093032984741803690 Code(s): U07.1 - COVID-19; J12.89 - OTHER VIRAL PNEUMONIA Status: Acute Priority: High Current Visit: Yes - Problem List Review Problem List Initiated/Reviewed/Updated: Yes - Assessment Assessment:: 03/17/20 * Patient is currently on room air. * Still complaining of pleuritic chest pain. States 6 feels extremely tight when he coughs. Needs a lot of encouragement to do his incentive spirometer as he states he can take a deep breath on his own to make himself cough. * States he has a good appetite and he is eating 100% of his meals. * Currently on day 3 of Zithromax, dexamethasone, and remdesivir. * Vital signs have remained stable over the past 24 hours and his max temperature was 99.0. - Plan Plan:: Impression: Covid-19 pneumonia Hypoxemia; failed OP supportive treatment (SARS d/t Covid 19 infection) Plan: Check mycoplasma Empiric Zithromax x 3 days. Cautious hydration Decadron Remdesivir x 5 days BS ac, hs D Dimer LFT CRP, procalcitonin Anticoagulation 03/17/20 * Lovenox for DVT prophylaxis. * Incentive spirometer and flutter valve every 1 hour while awake. * Increase activity independently in his room and sitting up in the chair for all meals. * Encourage side to side sleeping as the patient states he is unable to prone position. * Continue remdesivir and dexamethasone. * Repeat labs in the a.m. <Ronna Spann - Last Filed: 03/17/20 13:12> - Patient Data Vitals - Most Recent: Last Vital Signs Temp 36.6 C 03/17/20 12:12 Pulse 78 03/17/20 12:12 Resp 22 H 03/17/20 12:12 BP 110/79 03/17/20 12:12 Pulse Ox 96 03/17/20 12:49 I&O - Last 24 Hours: Intake & Output 03/16/20 03/17/20 03/17/20 22:59 06:59 14:59 Intake Total 1610 500 Output Total 600 650 Balance 1010 -150 Lab Results Last 24 Hours: Laboratory Results - last 24 hr 03/16/20 03/16/20 03/17/20 Range/Units 04:20 15:02 04:42 WBC (4.23-9.07) K/mm3 RBC (4.63-6.08) M/mm3 Hgb (13.7-17.5) gm/dl Hct (40.1-51.0) % MCV (79.0-92.2) fl MCH (25.7-32.2) pg MCHC (32.2-35.5) g/dl RDW Std Deviation (35.1-43.9) fL Plt Count (163-337) K/mm3 MPV (9.4-12.3) fl D-Dimer, Quantitative 0.38 (0.19-0.50) mg/L Sodium 138 (136-145) mEq/L Potassium 3.8 (3.5-5.1) mEq/L Chloride 101 (98-107) mEq/L Carbon Dioxide 24 (21-32) mEq/L Anion Gap 16.8 H (5-15) BUN 17 (7-18) mg/dL Creatinine 0.9 (0.7-1.3) mg/dL Est Cr Clr Drug Dosing 85.62 mL/min Estimated GFR (MDRD) > 60 (>60) mL/min BUN/Creatinine Ratio 18.9 H (14-18) Glucose 164 H (80-115) mg/dL Calcium 8.8 (8.5-10.1) mg/dL AST 18 (15-37) U/L ALT 40 (16-63) U/L Troponin I < 0.017 (0.00-0.056) ng/mL C-Reactive Protein (<1.0) mg/dL Procalcitonin <0.05 (<0.10) ng/mL 03/17/20 03/17/20 03/17/20 Range/Units 04:42 04:42 04:42 WBC 10.95 H (4.23-9.07) K/mm3 RBC 4.73 (4.63-6.08) M/mm3 Hgb 13.2 L (13.7-17.5) gm/dl Hct 40.6 (40.1-51.0) % MCV 85.8 (79.0-92.2) fl MCH 27.9 (25.7-32.2) pg MCHC 32.5 (32.2-35.5) g/dl RDW Std Deviation 41.7 (35.1-43.9) fL Plt Count 305 (163-337) K/mm3 MPV 10.4 (9.4-12.3) fl D-Dimer, Quantitative 0.62 H (0.19-0.50) mg/L Sodium (136-145) mEq/L Potassium (3.5-5.1) mEq/L Chloride (98-107) mEq/L Carbon Dioxide (21-32) mEq/L Anion Gap (5-15) BUN (7-18) mg/dL Creatinine (0.7-1.3) mg/dL Est Cr Clr Drug Dosing mL/min Estimated GFR (MDRD) (>60) mL/min BUN/Creatinine Ratio (14-18) Glucose (80-115) mg/dL Calcium (8.5-10.1) mg/dL AST (15-37) U/L ALT (16-63) U/L Troponin I (0.00-0.056) ng/mL C-Reactive Protein 3.8 H* (<1.0) mg/dL Procalcitonin (<0.10) ng/mL Med Orders - Current: Current Medications Albuterol (Proventil Hfa) 0 gm INH Q2H PRN PRN Reason: wheezing/sob Last Admin: 03/17/20 12:48 Dose: 2 puff Documented by: Allopurinol (Zyloprim) 100 mg PO DAILY [facility] Last Admin: 03/17/20 08:52 Dose: 100 mg Documented by: Aspirin (Ecotrin) 325 mg PO DAILY [facility] Last Admin: 03/17/20 08:52 Dose: 325 mg Documented by: Benazepril HCl (Lotensin) 10 mg PO DAILY [facility] Last Admin: 03/16/20 10:00 Dose: 10 mg Documented by: Cholecalciferol (Vitamin D3) 5,000 unit PO DAILY [facility] Last Admin: 03/17/20 08:52 Dose: 5,000 unit Documented by: Dexamethasone (Dexamethasone) 6 mg PO Q24H [facility] Stop: 03/24/20 22:01 Last Admin: 03/17/20 05:57 Dose: Not Given Documented by: Enoxaparin Sodium (Lovenox) 30 mg SUBCUT Q12H [facility] Last Admin: 03/17/20 08:51 Dose: 30 mg Documented by: Remdesivir 100 mg/ Sodium (Chloride) 100 mls @ 100 mls/hr IV Q24H [facility] Stop: 03/19/20 22:59 Last Admin: 03/16/20 21:31 Dose: 100 mls/hr Documented by: Azithromycin 500 mg/ Sodium (Chloride) 250 mls @ 250 mls/hr IV Q24H [facility] Stop: 03/18/20 09:59 Last Admin: 03/17/20 08:52 Dose: 250 mls/hr Documented by: Ondansetron HCl (Zofran Odt) 4 mg PO Q8H PRN PRN Reason: Nausea/Vomiting Pantoprazole Sodium (Protonix) 40 mg PO DAILY [facility] Last Admin: 03/17/20 08:52 Dose: 40 mg Documented by: Simvastatin (Zocor) 10 mg PO BEDTIME [facility] Last Admin: 03/16/20 20:30 Dose: 10 mg Documented by: Discontinued Medications Dexamethasone (Dexamethasone) 6 mg PO DAILY [facility] Last Admin: 03/15/20 22:54 Dose: 6 mg Documented by: Enoxaparin Sodium (Lovenox) 30 mg SUBCUT Q12H [facility] Last Admin: 03/16/20 20:30 Dose: 30 mg Documented by: Remdesivir 200 mg/ Sodium (Chloride) 250 mls @ 250 mls/hr IV ONETIME ONE Stop: 03/15/20 22:29 Last Admin: 03/15/20 22:53 Dose: 250 mls/hr Documented by: Azithromycin 500 mg/ Sodium (Chloride) 250 mls @ 250 mls/hr IV ONETIME ONE Stop: 03/16/20 10:59 Last Admin: 03/16/20 10:01 Dose: 250 mls/hr Documented by: Azithromycin 500 mg/ Sodium (Chloride) 250 mls @ 250 mls/hr IV Q24H [facility] Stop: 03/18/20 10:59 Sepsis Event Note - Focused Exam Vital Signs: Vital Signs Temp Temp Pulse Pulse Resp BP BP 03/17/20 12:49 03/17/20 12:12 36.6 C 78 22 H 110/79 03/17/20 12:05 36.6 C 70 110/97 H 03/17/20 08:10 36.4 C 67 20 127/88 03/17/20 07:59 03/17/20 04:43 36.7 C 65 17 131/70 Pulse Ox Pulse Ox 03/17/20 12:49 96 03/17/20 12:12 91 L 03/17/20 12:05 92 L 03/17/20 08:10 91 L 03/17/20 07:59 92 L 03/17/20 04:43 93 L - Problem List & Annotations (1) Atypical chest pain SNOMED Code(s): 703521030 Code(s): R07.89 - OTHER CHEST PAIN Status: Acute Priority: High Current Visit: Yes (2) COVID-19 SNOMED Code(s): 155085790 Code(s): U07.1 - COVID-19 Status: Acute Priority: High Current Visit: Yes (3) Pneumonia due to COVID-19 virus SNOMED Code(s): 044869861325547398 Code(s): U07.1 - COVID-19; J12.89 - OTHER VIRAL PNEUMONIA Status: Acute Priority: High Current Visit: Yes - My Orders Last 24 Hours: My Active Orders 03/16/20 22:00 Remdesivir (Eua) [Remdesivir (EUA)] 100 mg Sodium Chloride 0.9% [Normal Saline] 100 ml IV Q24H dexAMETHasone 6 mg PO Q24H 03/17/20 09:00 Azithromycin [Zithromax] 500 mg Sodium Chloride 0.9% [Normal Saline (AdvBag)] 250 ml IV Q24H Enoxaparin [Lovenox] 30 mg SUBCUT Q12H 03/17/20 10:56 RT Post Treatment Assessment [RC] Click to Edit RT Pre-Treatment Assessment [RC] Click to Edit Albuterol [Proventil HFA] See Dose Instructions INH Q2H PRN 03/18/20 05:11 CBC W/O DIFF,HEMOGRAM [HEME] DAILY D-DIMER QUANTITATIVE [COAG] DAILY 03/18/20 06:00 ALANINE AMINOTRANSFERASE,ALT [CHEM] DAILY ASPARTATE AMNIOTRANSFERASE,AST [CHEM] DAILY BMP [BASIC METABOLIC PANEL,BMP] [CHEM] DAILY TROPONIN I [CHEM] DAILY 03/19/20 05:11 CBC W/O DIFF,HEMOGRAM [HEME] DAILY D-DIMER QUANTITATIVE [COAG] DAILY 03/20/20 05:11 CBC W/O DIFF,HEMOGRAM [HEME] DAILY - Plan Plan:: Agree with assessment and plan of care except as amended; R 3/5; D 3/10; Z 2/3. Increase activity as tolerated
[2020-03-17] MEDS: Albuterol 6.7 GM Inhaler INH PRN ×2 (12:48→14:48)
[2020-03-17] MEDS: Simvastatin 10 MG Tab PO SCH (20:57)
[2020-03-17] MEDS: REMDESIVIR (EUA) 100 MG in Sodium Chloride 0.9% 100 ML IV SCH (21:00)
[2020-03-18] MEDS: Dexamethasone 4 MG Tab PO SCH ×2 (05:30→21:13)
[2020-03-18] MEDS: Aspirin 325 MG Tab.EC PO SCH (09:34)
[2020-03-18] MEDS: Benazepril 10 MG Tab PO SCH (09:34)
[2020-03-18] MEDS: Pantoprazole 40 MG Tab.CR PO SCH (09:34)
[2020-03-18] MEDS: Allopurinol 100 MG Tab PO SCH (09:35)
[2020-03-18] MEDS: Cholecalciferol (Vitamin D3) 5,000 UNIT Cap PO SCH (09:35)
[2020-03-18] MEDS: Enoxaparin 30 MG/0.3 ML Syringe SUBCUT SCH ×2 (09:36→21:12)
[2020-03-18] MEDS: Azithromycin 500 MG in Sodium Chloride 0.9% 250 ML IV SCH (09:36)
--- NOTE | 2020-03-18 18:08 | PCM.PN ---
- General Info Date of Service: 03/18/20 Functional Status: Reports: Tolerating Diet, Ambulating, Urinating - Review of Systems General: Reports: No Symptoms HEENT: Reports: No Symptoms Pulmonary: Reports: Shortness of Breath Cardiovascular: Reports: No Symptoms Gastrointestinal: Reports: No Symptoms Genitourinary: Reports: No Symptoms Musculoskeletal: Reports: No Symptoms Skin: Reports: No Symptoms Neurological: Reports: No Symptoms Psychiatric: Reports: No Symptoms - Patient Data Vitals - Most Recent: Last Vital Signs Temp 36.6 C 03/18/20 16:00 Pulse 65 03/18/20 16:00 Resp 16 03/18/20 16:00 BP 151/73 H 03/18/20 16:00 Pulse Ox 93 L 03/18/20 16:00 Weight - Most Recent: 111.266 kg I&O - Last 24 Hours: Intake & Output 03/18/20 03/18/20 03/18/20 06:59 14:59 22:59 Intake Total 100 1240 Output Total 500 1200 Balance -400 40 Lab Results Last 24 Hours: Laboratory Results - last 24 hr 03/18/20 03/18/20 03/18/20 Range/Units 07:04 07:04 07:04 WBC 12.82 H (4.23-9.07) K/mm3 RBC 4.53 L (4.63-6.08) M/mm3 Hgb 12.7 L (13.7-17.5) gm/dl Hct 38.9 L (40.1-51.0) % MCV 85.9 (79.0-92.2) fl MCH 28.0 (25.7-32.2) pg MCHC 32.6 (32.2-35.5) g/dl RDW Std Deviation 41.5 (35.1-43.9) fL Plt Count 311 (163-337) K/mm3 MPV 9.8 (9.4-12.3) fl D-Dimer, Quantitative 0.23 (0.19-0.50) mg/L Sodium 139 (136-145) mEq/L Potassium 4.6 (3.5-5.1) mEq/L Chloride 104 (98-107) mEq/L Carbon Dioxide 26 (21-32) mEq/L Anion Gap 13.6 (5-15) BUN 16 (7-18) mg/dL Creatinine 0.9 (0.7-1.3) mg/dL Est Cr Clr Drug Dosing 85.62 mL/min Estimated GFR (MDRD) > 60 (>60) mL/min BUN/Creatinine Ratio 17.8 (14-18) Glucose 144 H (80-115) mg/dL Calcium 8.8 (8.5-10.1) mg/dL AST 16 (15-37) U/L ALT 35 (16-63) U/L Troponin I < 0.017 (0.00-0.056) ng/mL Med Orders - Current: Current Medications Albuterol (Proventil Hfa) 0 gm INH Q2H PRN PRN Reason: wheezing/sob Last Admin: 03/17/20 14:48 Dose: 2 puff Documented by: Allopurinol (Zyloprim) 100 mg PO DAILY [facility] Last Admin: 03/18/20 09:35 Dose: 100 mg Documented by: Aspirin (Ecotrin) 325 mg PO DAILY [facility] Last Admin: 03/18/20 09:34 Dose: 325 mg Documented by: Benazepril HCl (Lotensin) 10 mg PO DAILY [facility] Last Admin: 03/18/20 09:34 Dose: 10 mg Documented by: Cholecalciferol (Vitamin D3) 5,000 unit PO DAILY [facility] Last Admin: 03/18/20 09:35 Dose: 5,000 unit Documented by: Dexamethasone (Dexamethasone) 6 mg PO Q24H [facility] Stop: 03/24/20 22:01 Last Admin: 03/18/20 05:30 Dose: Not Given Documented by: Enoxaparin Sodium (Lovenox) 30 mg SUBCUT Q12H [facility] Last Admin: 03/18/20 09:36 Dose: 30 mg Documented by: Remdesivir 100 mg/ Sodium (Chloride) 100 mls @ 100 mls/hr IV Q24H [facility] Stop: 03/19/20 22:59 Last Admin: 03/17/20 21:00 Dose: 100 mls/hr Documented by: Ondansetron HCl (Zofran Odt) 4 mg PO Q8H PRN PRN Reason: Nausea/Vomiting Pantoprazole Sodium (Protonix) 40 mg PO DAILY [facility] Last Admin: 03/18/20 09:34 Dose: 40 mg Documented by: Simvastatin (Zocor) 10 mg PO BEDTIME [facility] Last Admin: 03/17/20 20:57 Dose: 10 mg Documented by: Discontinued Medications Dexamethasone (Dexamethasone) 6 mg PO DAILY [facility] Last Admin: 03/15/20 22:54 Dose: 6 mg Documented by: Enoxaparin Sodium (Lovenox) 30 mg SUBCUT Q12H [facility] Last Admin: 03/17/20 14:38 Dose: Not Given Documented by: Remdesivir 200 mg/ Sodium (Chloride) 250 mls @ 250 mls/hr IV ONETIME ONE Stop: 03/15/20 22:29 Last Admin: 03/15/20 22:53 Dose: 250 mls/hr Documented by: Azithromycin 500 mg/ Sodium (Chloride) 250 mls @ 250 mls/hr IV ONETIME ONE Stop: 03/16/20 10:59 Last Admin: 03/16/20 10:01 Dose: 250 mls/hr Documented by: Azithromycin 500 mg/ Sodium (Chloride) 250 mls @ 250 mls/hr IV Q24H [facility] Stop: 03/18/20 10:59 Azithromycin 500 mg/ Sodium (Chloride) 250 mls @ 250 mls/hr IV Q24H [facility] Stop: 03/18/20 09:59 Last Admin: 03/18/20 09:36 Dose: 250 mls/hr Documented by: - Exam Quality Assessment: DVT Prophylaxis General: Alert, Oriented, Cooperative, No Acute Distress HEENT: Pupils Equal, Pupils Reactive, EOMI Neck: Trachea Midline, No JVD Lungs: Clear to Auscultation, Normal Respiratory Effort Cardiovascular: Regular Rate, Regular Rhythm GI/Abdominal Exam: Normal Bowel Sounds, Soft, Non-Tender, No Organomegaly, No Distention (Male) Exam: Deferred Back Exam: Normal Inspection Extremities: Normal Inspection, Normal Capillary Refill Skin: Warm Neurological: No New Focal Deficit, Normal Gait, Normal Speech Psy/Mental Status: Alert, Normal Affect, Normal Mood Sepsis Event Note - Evaluation Sepsis Screening Result: No Definite Risk - Focused Exam Vital Signs: Vital Signs Temp Pulse Resp BP BP Pulse Ox 03/18/20 16:00 36.6 C 65 16 151/73 H 93 L 03/18/20 12:00 36.8 C 64 16 143/87 H 94 L 03/18/20 09:34 141/79 H 03/18/20 08:00 36.7 C 70 18 141/79 H 92 L - Problem List & Annotations (1) Atypical chest pain SNOMED Code(s): 312018180 Code(s): R07.89 - OTHER CHEST PAIN Status: Acute Priority: High Current Visit: Yes (2) COVID-19 SNOMED Code(s): 919385172 Code(s): U07.1 - COVID-19 Status: Acute Priority: High Current Visit: Yes (3) Pneumonia due to COVID-19 virus SNOMED Code(s): 529090963699731463 Code(s): U07.1 - COVID-19; J12.89 - OTHER VIRAL PNEUMONIA Status: Acute Priority: High Current Visit: Yes - Problem List Review Problem List Initiated/Reviewed/Updated: Yes - My Orders Last 24 Hours: My Active Orders 03/18/20 Dinner Regular Diet [DIET] 03/19/20 05:11 CBC W/O DIFF,HEMOGRAM [HEME] DAILY D-DIMER QUANTITATIVE [COAG] DAILY 03/20/20 05:11 CBC W/O DIFF,HEMOGRAM [HEME] DAILY - Assessment Assessment:: Impression: Covid-19 PNA without hypoxia Zithromax completed Remdesivir 4/5 Rocephin 4/5 Dexamethasone 4/10 Chronic HTN HLD Obesity Plan: Empiric Zithromax x 3 days. Cautious hydration Decadron Remdesivir BS ac, hs D Dimer LFT CRP, procalcitonin Anticoagulation
[2020-03-18] MEDS: Albuterol 6.7 GM Inhaler INH PRN (20:45)
[2020-03-18] MEDS: Simvastatin 10 MG Tab PO SCH (21:13)
[2020-03-18] MEDS: REMDESIVIR (EUA) 100 MG in Sodium Chloride 0.9% 100 ML IV SCH (21:16)
[2020-03-19] MEDS: Albuterol 6.7 GM Inhaler INH PRN ×2 (08:38→20:44)
[2020-03-19] MEDS: Enoxaparin 30 MG/0.3 ML Syringe SUBCUT SCH ×2 (08:45→22:21)
[2020-03-19] MEDS: Aspirin 325 MG Tab.EC PO SCH (08:47)
[2020-03-19] MEDS: Cholecalciferol (Vitamin D3) 5,000 UNIT Cap PO SCH (08:47)
[2020-03-19] MEDS: Benazepril 10 MG Tab PO SCH (08:47)
[2020-03-19] MEDS: Allopurinol 100 MG Tab PO SCH (08:47)
[2020-03-19] MEDS: Pantoprazole 40 MG Tab.CR PO SCH (08:47)
--- NOTE | 2020-03-19 17:08 | PCM.PN ---
- General Info Date of Service: 03/19/20 Functional Status: Reports: Pain Controlled, Tolerating Diet, Ambulating, Urinating - Review of Systems General: Reports: No Symptoms HEENT: Reports: No Symptoms Pulmonary: Reports: No Symptoms Cardiovascular: Reports: No Symptoms Gastrointestinal: Reports: No Symptoms Genitourinary: Reports: No Symptoms Musculoskeletal: Reports: No Symptoms Skin: Reports: No Symptoms Neurological: Reports: No Symptoms Psychiatric: Reports: No Symptoms - Patient Data Vitals - Most Recent: Last Vital Signs Temp 36.8 C 03/19/20 13:03 Pulse 64 03/19/20 13:03 Resp 18 03/19/20 13:03 BP 156/66 H 03/19/20 13:03 Pulse Ox 91 L 03/19/20 13:03 Weight - Most Recent: 110.858 kg I&O - Last 24 Hours: Intake & Output 03/19/20 03/19/20 03/19/20 06:59 14:59 22:59 Intake Total 1100 300 180 Output Total 2160 Balance -1060 300 180 Lab Results Last 24 Hours: Laboratory Results - last 24 hr 03/19/20 03/19/20 Range/Units 05:47 05:47 WBC 12.32 H (4.23-9.07) K/mm3 RBC 4.64 (4.63-6.08) M/mm3 Hgb 12.9 L (13.7-17.5) gm/dl Hct 39.8 L (40.1-51.0) % MCV 85.8 (79.0-92.2) fl MCH 27.8 (25.7-32.2) pg MCHC 32.4 (32.2-35.5) g/dl RDW Std Deviation 41.7 (35.1-43.9) fL Plt Count 345 H (163-337) K/mm3 MPV 9.9 (9.4-12.3) fl D-Dimer, Quantitative 0.26 (0.19-0.50) mg/L Med Orders - Current: Current Medications Albuterol (Proventil Hfa) 0 gm INH Q2H PRN PRN Reason: wheezing/sob Last Admin: 03/19/20 08:38 Dose: 2 puff Documented by: Allopurinol (Zyloprim) 100 mg PO DAILY [facility] Last Admin: 03/19/20 08:47 Dose: 100 mg Documented by: Aspirin (Ecotrin) 325 mg PO DAILY [facility] Last Admin: 03/19/20 08:47 Dose: 325 mg Documented by: Benazepril HCl (Lotensin) 10 mg PO DAILY [facility] Last Admin: 03/19/20 08:47 Dose: 10 mg Documented by: Cholecalciferol (Vitamin D3) 5,000 unit PO DAILY [facility] Last Admin: 03/19/20 08:47 Dose: 5,000 unit Documented by: Dexamethasone (Dexamethasone) 6 mg PO Q24H [facility] Stop: 03/24/20 22:01 Last Admin: 03/18/20 21:13 Dose: 6 mg Documented by: Enoxaparin Sodium (Lovenox) 30 mg SUBCUT Q12H [facility] Last Admin: 03/19/20 08:45 Dose: 30 mg Documented by: Remdesivir 100 mg/ Sodium (Chloride) 100 mls @ 100 mls/hr IV Q24H [facility] Stop: 03/19/20 22:59 Last Admin: 03/18/20 21:16 Dose: 100 mls/hr Documented by: Ondansetron HCl (Zofran Odt) 4 mg PO Q8H PRN PRN Reason: Nausea/Vomiting Pantoprazole Sodium (Protonix) 40 mg PO DAILY [facility] Last Admin: 03/19/20 08:47 Dose: 40 mg Documented by: Simvastatin (Zocor) 10 mg PO BEDTIME [facility] Last Admin: 03/18/20 21:13 Dose: 10 mg Documented by: Discontinued Medications Dexamethasone (Dexamethasone) 6 mg PO DAILY [facility] Last Admin: 03/15/20 22:54 Dose: 6 mg Documented by: Enoxaparin Sodium (Lovenox) 30 mg SUBCUT Q12H [facility] Last Admin: 03/17/20 14:38 Dose: Not Given Documented by: Remdesivir 200 mg/ Sodium (Chloride) 250 mls @ 250 mls/hr IV ONETIME ONE Stop: 03/15/20 22:29 Last Admin: 03/15/20 22:53 Dose: 250 mls/hr Documented by: Azithromycin 500 mg/ Sodium (Chloride) 250 mls @ 250 mls/hr IV ONETIME ONE Stop: 03/16/20 10:59 Last Admin: 03/16/20 10:01 Dose: 250 mls/hr Documented by: Azithromycin 500 mg/ Sodium (Chloride) 250 mls @ 250 mls/hr IV Q24H [facility] Stop: 03/18/20 10:59 Azithromycin 500 mg/ Sodium (Chloride) 250 mls @ 250 mls/hr IV Q24H [facility] Stop: 03/18/20 09:59 Last Admin: 03/18/20 09:36 Dose: 250 mls/hr Documented by: - Exam Quality Assessment: DVT Prophylaxis General: Alert, Oriented, Cooperative, No Acute Distress HEENT: Pupils Equal, Pupils Reactive, EOMI Neck: Trachea Midline, No JVD Lungs: Normal Respiratory Effort Cardiovascular: Regular Rate, Regular Rhythm GI/Abdominal Exam: Normal Bowel Sounds, Soft, Non-Tender, No Distention (Male) Exam: Deferred Back Exam: Normal Inspection Extremities: Normal Inspection, Non-Tender, Normal Capillary Refill Skin: Warm Neurological: No New Focal Deficit Psy/Mental Status: Alert, Normal Affect, Normal Mood Sepsis Event Note - Evaluation Sepsis Screening Result: No Definite Risk - Focused Exam Vital Signs: Vital Signs Temp Pulse Resp BP Pulse Ox Pulse Ox 03/19/20 13:03 36.8 C 64 18 156/66 H 91 L 03/19/20 08:47 136/75 03/19/20 08:38 94 L 03/19/20 07:25 37.1 C 61 18 136/75 95 03/19/20 05:41 36.6 C 60 18 129/69 93 L - Problem List & Annotations (1) Atypical chest pain SNOMED Code(s): 653532994 Code(s): R07.89 - OTHER CHEST PAIN Status: Acute Priority: High Current Visit: Yes (2) COVID-19 SNOMED Code(s): 704110247 Code(s): U07.1 - COVID-19 Status: Acute Priority: High Current Visit: Yes (3) Pneumonia due to COVID-19 virus SNOMED Code(s): 261367350884113088 Code(s): U07.1 - COVID-19; J12.89 - OTHER VIRAL PNEUMONIA Status: Acute Priority: High Current Visit: Yes - Problem List Review Problem List Initiated/Reviewed/Updated: Yes - My Orders Last 24 Hours: My Active Orders 03/18/20 Dinner Regular Diet [DIET] 03/20/20 05:11 CBC W/O DIFF,HEMOGRAM [HEME] DAILY - Assessment Assessment:: Impression: Covid-19 PNA without hypoxia Zithromax 3/3 Remdesivir 5/ Rocephin 5/ Dexamethasone / Chronic HTN HLD Obesity Plan: Cautious hydration BS ac, hs D Dimer LFT CRP, procalcitonin Anticoagulation DC anticipated on 03/20/2020. - Plan Plan:: Agree with assessment and plan of care except as amended; R 3; D 07/19; Z 2/3. Increase activity as tolerated
[2020-03-19] MEDS: REMDESIVIR (EUA) 100 MG in Sodium Chloride 0.9% 100 ML IV SCH (21:25)
[2020-03-19] MEDS: Simvastatin 10 MG Tab PO SCH (22:21)
[2020-03-19] MEDS: Dexamethasone 4 MG Tab PO SCH (22:21)
[2020-03-20] MEDS: Albuterol 6.7 GM Inhaler INH PRN (07:52)
[2020-03-20] MEDS: Enoxaparin 30 MG/0.3 ML Syringe SUBCUT SCH (09:48)
[2020-03-20] MEDS: Benazepril 10 MG Tab PO SCH (09:49)
[2020-03-20] MEDS: Cholecalciferol (Vitamin D3) 5,000 UNIT Cap PO SCH (09:49)
[2020-03-20] MEDS: Allopurinol 100 MG Tab PO SCH (09:49)
[2020-03-20] MEDS: Pantoprazole 40 MG Tab.CR PO SCH (09:49)
[2020-03-20] MEDS: Aspirin 325 MG Tab.EC PO SCH (09:49)
--- NOTE | 2020-03-20 12:30 | PCM.DCSUM1 ---
Discharge Summary - Hospital Course HPI Initial Comments: 64 year old male with known diagnosis of Covid-19 PNA presents for a third time to [facility] ED. The patient's PCP called the ED and stated that the patient is hypoxic. He was originally diagnosed on 03/07/2020. The testing was performed on 03/05/2020. He continues to be SOB, has a persistent dry cough and malaise. Patient admits to subjective fever; ED evaluation documented hypoxia. The patient will be admitted for Covid-19 PNA with hypoxia, failed OP conservative supportive treatment. Diagnosis: Stroke: No - Discharge Data Discharge Date: 03/20/20 Discharge Disposition: Home, Self-Care 01 Condition: Good - Referral to Home Health Primary Care Physician: Hilton Webster MD - Discharge Diagnosis/Problem(s) (1) Atypical chest pain SNOMED Code(s): 140488717 ICD Code: R07.89 - OTHER CHEST PAIN Status: Acute Priority: High Current Visit: Yes (2) COVID-19 SNOMED Code(s): 401217849 ICD Code: U07.1 - COVID-19 Status: Acute Priority: High Current Visit: Yes (3) Pneumonia due to COVID-19 virus SNOMED Code(s): 322798897990828744 ICD Code: U07.1 - COVID-19; J12.89 - OTHER VIRAL PNEUMONIA Status: Acute Priority: High Current Visit: Yes - Patient Instructions Diet: Usual Diet as Tolerated Activity: As Tolerated Driving: May Drive Today Showering/Bathing: May Shower Notify Provider of: Fever, Increased Pain, Nausea and/or Vomiting - Discharge Plan *PRESCRIPTION DRUG MONITORING PROGRAM REVIEWED*: No *COPY OF PRESCRIPTION DRUG MONITORING REPORT IN PATIENT GEE: No Prescriptions/Med Rec: dexAMETHasone [Dexamethasone] 6 mg PO Q24H #5 tablet Home Medications: Home Meds Benazepril [Lotensin] 10 mg PO DAILY 03/11/19 [History] Simvastatin [Zocor] 10 mg PO BEDTIME 03/11/19 [History] Triamterene/Hydrochlorothiazid [Triamterene-HCTZ 37.5-25 MG] 1 each PO BEDTIME 03/11/19 [History] allopurinoL [Zyloprim] 100 mg PO DAILY 03/11/19 [History] Ondansetron [Zofran ODT] 1 tab PO Q8H PRN #10 tab.dis 03/13/20 [Rx] Cholecalciferol (Vitamin D3) [Vitamin D] 1 tab PO DAILY 03/15/20 [History] Multivitamin [Multivitamins] 1 tab PO DAILY 03/15/20 [History] Aspirin [Ecotrin EC] 325 mg PO DAILY #0 tab.ec 03/20/20 [Rx] dexAMETHasone [Dexamethasone] 6 mg PO Q24H #5 tablet 03/20/20 [Rx] Oxygen Therapy Mode: Room Air Patient Handouts: COVID-19 Frequently Asked Questions, COVID-19, COVID-19: How to Protect Yourself and Others - CDC, Infection Prevention in the Home, Prevent the Spread of COVID-19 if You Are Sick - [facility] Forms: ED Department Discharge Referrals: Hilton Webster MD [Primary Care Provider] - (2 week f/u) - Discharge Summary/Plan Comment DC Time >30 min.: No Discharge Summary/Plan Comment: Covid-19 PNA without hypoxia. The patient required O2 initially but was weaned off in the first 24 hours; Treatment: Zithromax 3/3; Remdesivir 5/5; Rocephin 5/5; Dexamethasone 5/10--will be continued for a total for 5 additional days. He will need follow up with his PCP in 2 weeks. Should quarantine for an additional week and wear a mask to prevent exposure to public/friends or family. Will request a test from his PCP, the week of 04/03. Patient should also take ASA for at least 2 weeks after DC. - General Info Date of Service: 03/15/20 Functional Status: Reports: Pain Controlled, Tolerating Diet, Ambulating, Urinating - Review of Systems General: Reports: No Symptoms HEENT: Reports: No Symptoms Pulmonary: Reports: No Symptoms Cardiovascular: Reports: No Symptoms Gastrointestinal: Reports: No Symptoms Genitourinary: Reports: No Symptoms Musculoskeletal: Reports: No Symptoms Skin: Reports: No Symptoms Neurological: Reports: No Symptoms Psychiatric: Reports: No Symptoms - Patient Data Vitals - Most Recent: Last Vital Signs Temp 36.7 C 03/20/20 08:20 Pulse 67 03/20/20 08:20 Resp 18 03/20/20 08:20 BP 132/67 03/20/20 09:49 Pulse Ox 93 L 03/20/20 08:20 Weight - Most Recent: 109.633 kg I&O - Last 24 hours: Intake & Output 03/19/20 03/20/20 03/20/20 22:59 06:59 14:59 Intake Total 3220 1600 120 Output Total 3368 2250 Balance -148 -650 120 Lab Results - Last 24 hrs: Laboratory Results - last 24 hr 03/20/20 Range/Units 05:44 WBC 12.04 H (4.23-9.07) K/mm3 RBC 4.83 (4.63-6.08) M/mm3 Hgb 13.5 L (13.7-17.5) gm/dl Hct 41.3 (40.1-51.0) % MCV 85.5 (79.0-92.2) fl MCH 28.0 (25.7-32.2) pg MCHC 32.7 (32.2-35.5) g/dl RDW Std Deviation 41.7 (35.1-43.9) fL Plt Count 389 H (163-337) K/mm3 MPV 10.1 (9.4-12.3) fl Med Orders - Current: Current Medications Albuterol (Proventil Hfa) 0 gm INH Q2H PRN PRN Reason: wheezing/sob Last Admin: 03/20/20 07:52 Dose: 2 puff Documented by: Allopurinol (Zyloprim) 100 mg PO DAILY [facility] Last Admin: 03/20/20 09:49 Dose: 100 mg Documented by: Aspirin (Ecotrin) 325 mg PO DAILY [facility] Last Admin: 03/20/20 09:49 Dose: 325 mg Documented by: Benazepril HCl (Lotensin) 10 mg PO DAILY [facility] Last Admin: 03/20/20 09:49 Dose: 10 mg Documented by: Cholecalciferol (Vitamin D3) 5,000 unit PO DAILY [facility] Last Admin: 03/20/20 09:49 Dose: 5,000 unit Documented by: Dexamethasone (Dexamethasone) 6 mg PO Q24H [facility] Stop: 03/24/20 22:01 Last Admin: 03/19/20 22:21 Dose: 6 mg Documented by: Enoxaparin Sodium (Lovenox) 30 mg SUBCUT Q12H [facility] Last Admin: 03/20/20 09:48 Dose: 30 mg Documented by: Ondansetron HCl (Zofran Odt) 4 mg PO Q8H PRN PRN Reason: Nausea/Vomiting Pantoprazole Sodium (Protonix) 40 mg PO DAILY [facility] Last Admin: 03/20/20 09:49 Dose: 40 mg Documented by: Simvastatin (Zocor) 10 mg PO BEDTIME [facility] Last Admin: 03/19/20 22:21 Dose: 10 mg Documented by: Discontinued Medications Dexamethasone (Dexamethasone) 6 mg PO DAILY [facility] Last Admin: 03/15/20 22:54 Dose: 6 mg Documented by: Enoxaparin Sodium (Lovenox) 30 mg SUBCUT Q12H [facility] Last Admin: 03/17/20 14:38 Dose: Not Given Documented by: Remdesivir 200 mg/ Sodium (Chloride) 250 mls @ 250 mls/hr IV ONETIME ONE Stop: 03/15/20 22:29 Last Admin: 03/15/20 22:53 Dose: 250 mls/hr Documented by: Remdesivir 100 mg/ Sodium (Chloride) 100 mls @ 100 mls/hr IV Q24H [facility] Stop: 03/19/20 22:59 Last Admin: 03/19/20 21:25 Dose: 100 mls/hr Documented by: Azithromycin 500 mg/ Sodium (Chloride) 250 mls @ 250 mls/hr IV ONETIME ONE Stop: 03/16/20 10:59 Last Admin: 03/16/20 10:01 Dose: 250 mls/hr Documented by: Azithromycin 500 mg/ Sodium (Chloride) 250 mls @ 250 mls/hr IV Q24H [facility] Stop: 03/18/20 10:59 Azithromycin 500 mg/ Sodium (Chloride) 250 mls @ 250 mls/hr IV Q24H [facility] Stop: 03/18/20 09:59 Last Admin: 03/18/20 09:36 Dose: 250 mls/hr Documented by: - Exam Quality Assessment: Reports: DVT Prophylaxis General: Reports: Alert, Oriented, Cooperative, No Acute Distress HEENT: Reports: Pupils Equal, Pupils Reactive, EOMI Neck: Reports: Trachea Midline, No JVD Lungs: Reports: Normal Respiratory Effort, Decreased Breath Sounds Cardiovascular: Reports: Regular Rate, Regular Rhythm GI/Abdominal Exam: Normal Bowel Sounds, Soft, Non-Tender, No Distention (Male) Exam: Deferred Rectal (Males) Exam: Deferred Back Exam: Reports: Normal Inspection Extremities: Normal Inspection, No Pedal Edema, Normal Capillary Refill Skin: Reports: Warm Neurological: Reports: No New Focal Deficit Psy/Mental Status: Reports: Alert, Normal Affect, Normal Mood
== END 2020-03-20 13:55 | disposition home or self-care (01) | DRG 137 ==
LOC: JD.ED 14:14 → JD.MS 18:24
PROVIDERS: ADMIT Internal Medicine Cardiovascular Disease; ATTEND Internal Medicine Cardiovascular Disease
PROC: XW033E5 Introduction of Remdesivir Anti-infective into Peripheral Vein, Percutaneous Approach, New Technology Group 5 (ICD-10-PCS; principal; 2020-03-15)
PROC: 8E0ZXY6 Isolation (ICD-10-PCS; 2020-03-15)
DX: U07.1 COVID-19 (principal); J12.89 Other viral pneumonia; R07.89 Other chest pain; Z79.811 Long term (current) use of aromatase inhibitors; Z79.899 Other long term (current) drug therapy; Z91.041 Radiographic dye allergy status; Z88.1 Allergy status to other antibiotic agents; E78.00 Pure hypercholesterolemia, unspecified; I10 Essential (primary) hypertension; G47.30 Sleep apnea, unspecified; K21.9 Gastro-esophageal reflux disease without esophagitis; N20.0 Calculus of kidney; E66.9 Obesity, unspecified; Z90.49 Acquired absence of other specified parts of digestive tract; Z99.81 Dependence on supplemental oxygen; Z68.34 Body mass index [BMI] 34.0-34.9, adult
CPT/HCPCS: 36415; 36600; 71045; 71045-26; 80048; 80053; 81003; 82728; 82803; 83615; 83735; 84145; 84450; 84460; 84484; 85007; 85025; 85027; 85379; 86140; 94640; 94668; 94760; 94761; 99284; 99285-25; A9270-GY; J0456; J1650; J7050; J8540

== ENCOUNTER 2020-06-13 11:06 | Emergency (ER) | payer BC ==
[2020-06-13] MEDS ORDERED: Sodium Chloride 0.9% 10 ML Syringe FLUSH PRN (11:57)
--- NOTE | 2020-06-13 12:33 | CR ---
Chest: Portable view of the chest was obtained. Comparison: Prior chest x-ray of 08/06/15. Heart size and mediastinum are within normal limits for portable technique. Lungs are clear with no acute parenchymal change. Bony structures are grossly intact. Impression: 1. Nothing acute is identified on portable chest x-ray. Diagnostic code #1
--- NOTE | 2020-06-13 13:08 | EDM.PDOC ---
ED HPI GENERAL MEDICAL PROBLEM - General Chief Complaint: Chest Pain Stated Complaint: ELEVATED BP/CLAMMY/HEARTBURN Time Seen by Provider: 06/13/20 11:29 Source of Information: Reports: Patient History Limitations: Reports: No Limitations - History of Present Illness INITIAL COMMENTS - FREE TEXT/NARRATIVE: The patient presents with some upper abdominal discomfort, hypertension and diaphoresis. This all started lat night. He does have a history of reflux. He checked his blood pressure a few times and it was elevated. He has no chest pain with it. He has no fever, chills, cough, congestion, nausea or vomiting. Onset: Gradual Duration: Hour(s): Location: Reports: Abdomen Quality: Reports: Sharp Severity: Mild Improves with: Reports: None Worsens with: Reports: None Associated Symptoms: Denies: Chest Pain, Cough, Fever/Chills, Headaches, Nausea/Vomiting, Shortness of Breath Treatments FLOSSER: Reports: Aspirin, Other (see below) Other Treatments FLOSSER: zantac 150mg Abdominal Pain Score (Numeric/FACES): 3 - Related Data Allergies Allergy/AdvReac Type Severity Reaction Status Date / Time iodine Allergy Severe Other Verified 06/13/20 11:29 clarithromycin AdvReac Severe Nausea Verified 06/13/20 11:29 Home Meds: Home Meds Benazepril [Lotensin] 10 mg PO DAILY 03/11/19 [History] Simvastatin [Zocor] 10 mg PO BEDTIME 03/11/19 [History] Triamterene/Hydrochlorothiazid [Triamterene-HCTZ 37.5-25 MG] 1 each PO BEDTIME 03/11/19 [History] allopurinoL [Zyloprim] 100 mg PO DAILY 03/11/19 [History] Ondansetron [Zofran ODT] 1 tab PO Q8H PRN #10 tab.dis 03/13/20 [Rx] Cholecalciferol (Vitamin D3) [Vitamin D] 1 tab PO DAILY 03/15/20 [History] Multivitamin [Multivitamins] 1 tab PO DAILY 03/15/20 [History] Past Medical History HEENT History: Reports: Other (See Below) Other HEENT History: wears glasses Cardiovascular History: Reports: High Cholesterol, Hypertension Respiratory History: Reports: Sleep Apnea Other Respiratory History: wear cpap at night Gastrointestinal History: Reports: GERD Genitourinary History: Reports: Renal Calculus Musculoskeletal History: Reports: Other (See Below) Other Musculoskeletal History: no gout-takes allopurinol for increased uric acid Psychiatric History: Reports: None Endocrine/Metabolic History: Reports: Obesity/BMI 30+ - Infectious Disease History Infectious Disease History: Reports: Novel Coronavirus - Past Surgical History HEENT Surgical History: Reports: Naso-Sinus Surgery, Oral Surgery GI Surgical History: Reports: Cholecystectomy Male Surgical History: Reports: Lithotripsy (ESWL), Renal Calculus Musculoskeletal Surgical History: Reports: Other (See Below) Social & Family History - Family History Family Medical History: No Pertinent Family History - Tobacco Use Tobacco Use Status *Q: Never Tobacco User - Caffeine Use Caffeine Use: Reports: Coffee - Recreational Drug Use Recreational Drug Use: No - Living Situation & Occupation Living situation: Reports: , with Spouse Occupation: Retired ED ROS GENERAL - Review of Systems Review Of Systems: See Below Constitutional: Reports: No Symptoms HEENT: Reports: No Symptoms Respiratory: Reports: No Symptoms Cardiovascular: Reports: No Symptoms Endocrine: Reports: No Symptoms GI/Abdominal: Reports: Abdominal Pain. Denies: Nausea, Vomiting : Reports: No Symptoms Musculoskeletal: Reports: No Symptoms ED EXAM, GENERAL - Physical Exam Exam: See Below Exam Limited By: No Limitations General Appearance: Alert, No Apparent Distress Ears: Normal External Exam Nose: Normal Inspection Head: Atraumatic, Normocephalic Neck: Normal Inspection Respiratory/Chest: No Respiratory Distress, Lungs Clear, Normal Breath Sounds Cardiovascular: Regular Rate, Rhythm, No Edema, No Murmur GI/Abdominal: Soft, Non-Tender, No Organomegaly, No Mass Back Exam: Normal Inspection Extremities: Normal Inspection #1 Interpretation EKG Date: 06/13/20 Time: 11:29 Rhythm: NSR Rate (Beats/Min): 68 Rowena: Normal P-Wave: Present QRS: Normal ST-T: Normal QT: Normal Course - Vital Signs Last Recorded V/S: Last Vital Signs Temp 97.5 F 06/13/20 11:33 Pulse 71 06/13/20 11:33 Resp 18 06/13/20 11:33 BP 162/82 H 06/13/20 11:33 Pulse Ox 97 06/13/20 11:33 - Orders/Labs/Meds Orders: Active Orders 24 hr Category Date Time Status Cardiac Monitoring [RC] . DIRECTED Care 06/13/20 11:57 Active EKG Documentation Completion [RC] STAT Care 06/13/20 11:57 Active Peripheral IV Care [RC] . DIRECTED Care 06/13/20 11:57 Active Sodium Chloride 0.9% [Saline Flush] Med 06/13/20 11:57 Active 10 ml FLUSH ASDIRECTED PRN Peripheral IV Insertion Adult [OM.PC] Stat Oth 06/13/20 11:57 Ordered Medication Orders Sodium Chloride (Saline Flush) 10 ml FLUSH ASDIRECTED PRN PRN Reason: Keep Vein Open Last Admin: 06/13/20 12:11 Dose: 10 ml Documented by: NATHANAEL Labs: Laboratory Tests 06/13/20 06/13/20 06/13/20 Range/Units 12:00 12:00 12:10 WBC 8.28 (4.23-9.07) K/mm3 RBC 5.21 (4.63-6.08) M/mm3 Hgb 14.4 (13.7-17.5) gm/dl Hct 44.3 (40.1-51.0) % MCV 85.0 (79.0-92.2) fl MCH 27.6 (25.7-32.2) pg MCHC 32.5 (32.2-35.5) g/dl RDW Std Deviation 43.2 (35.1-43.9) fL Plt Count 223 D (163-337) K/mm3 MPV 9.4 (9.4-12.3) fl Neut % (Auto) 63.0 (34.0-67.9) % Lymph % (Auto) 25.4 (21.8-53.1) % Rabun % (Auto) 8.9 (5.3-12.2) % Eos % (Auto) 2.3 (0.8-7.0) Baso % (Auto) 0.2 (0.1-1.2) % Neut # (Auto) 5.21 (1.78-5.38) K/mm3 Lymph # (Auto) 2.10 (1.32-3.57) K/mm3 Rabun # (Auto) 0.74 (0.30-0.82) K/mm3 Eos # (Auto) 0.19 (0.04-0.54) K/mm3 Baso # (Auto) 0.02 (0.01-0.08) K/mm3 D-Dimer, Quantitative 0.26 (0.19-0.50) mg/L Sodium 141 (136-145) mEq/L Potassium 4.5 (3.5-5.1) mEq/L Chloride 103 (98-107) mEq/L Carbon Dioxide 27 (21-32) mEq/L Anion Gap 15.5 H (5-15) BUN 13 (7-18) mg/dL Creatinine 0.8 (0.7-1.3) mg/dL Est Cr Clr Drug Dosing 96.32 mL/min Estimated GFR (MDRD) > 60 (>60) mL/min BUN/Creatinine Ratio 16.3 (14-18) Glucose 99 (80-115) mg/dL Calcium 9.3 (8.5-10.1) mg/dL Total Bilirubin 0.6 (0.2-1.0) mg/dL AST 17 (15-37) U/L ALT 32 (16-63) U/L Alkaline Phosphatase 60 (46-116) U/L Troponin I < 0.017 (0.00-0.056) ng/mL Total Protein 7.4 (6.4-8.2) g/dl Albumin 4.2 (3.4-5.0) g/dl Globulin 3.2 gm/dL Albumin/Globulin Ratio 1.3 (1-2) Meds: Medications Generic Name Dose Route Start Last Admin Trade Name Freq PRN Reason Stop Dose Admin Sodium Chloride 10 ml 06/13/20 11:57 06/13/20 12:11 Saline Flush FLUSH 10 ml ASDIRECTED PRN Administration Keep Vein Open - Re-Assessments/Exams Free Text/Narrative Re-Assessment/Exam: 06/13/20 13:07 I ordered an IV saline lock, EKG, CXR and labs. His EKG shows a NSR with no acute changes. His CXR looks good. His CBC and CMP look good. His troponin is negative. This does not appear to be a heart attack. I will discharge him home. Departure - Departure Time of Disposition: 13:15 Disposition: Home, Self-Care 01 Condition: Good Clinical Impression: Atypical chest pain Referrals: Hilton Webster MD [Primary Care Provider] - Additional Instructions: Take your medications as prescribed. Please return if you are worse. Sepsis Event Note (ED) - Evaluation Sepsis Screening Result: No Definite Risk - Focused Exam Vital Signs: Vital Signs Temp Pulse Resp BP Pulse Ox 06/13/20 11:33 97.5 F 71 18 162/82 H 97 - My Orders Last 24 Hours: My Active Orders 06/13/20 11:57 Cardiac Monitoring [RC] . DIRECTED EKG Documentation Completion [RC] STAT Peripheral IV Care [RC] . DIRECTED Sodium Chloride 0.9% [Saline Flush] 10 ml FLUSH ASDIRECTED PRN Peripheral IV Insertion Adult [OM.PC] Stat - Assessment/Plan Last 24 Hours: My Active Orders 06/13/20 11:57 Cardiac Monitoring [RC] . DIRECTED EKG Documentation Completion [RC] STAT Peripheral IV Care [RC] . DIRECTED Sodium Chloride 0.9% [Saline Flush] 10 ml FLUSH ASDIRECTED PRN Peripheral IV Insertion Adult [OM.PC] Stat
== END 2020-06-13 13:20 | disposition home or self-care (01) ==
LOC: JD.ED 11:06
DX: R07.89 Other chest pain (principal); E78.00 Pure hypercholesterolemia, unspecified; I10 Essential (primary) hypertension; E66.9 Obesity, unspecified; Z68.37 Body mass index [BMI] 37.0-37.9, adult; Z91.048 Other nonmedicinal substance allergy status; Z88.1 Allergy status to other antibiotic agents
CPT/HCPCS: 36415; 71045; 71045-26; 80053; 84484; 85025; 85379; 93005; 93010; 99284; 99284-25

== ENCOUNTER 2021-03-04 11:19 | Emergency (ER) | payer BC ==
[2021-03-04] MEDS ORDERED: Levofloxacin/Dextrose 5%-Water 750 MG in Premix Bag 1 BAG IV ONE (11:48)
--- NOTE | 2021-03-04 11:54 | EDM.PDOC ---
ED HPI GENERAL MEDICAL PROBLEM - General Chief Complaint: Abdominal Pain Stated Complaint: ABDOMINAL PAIN Time Seen by Provider: 03/04/21 11:36 Source of Information: Reports: Patient History Limitations: Reports: No Limitations - History of Present Illness INITIAL COMMENTS - FREE TEXT/NARRATIVE: 65-year-old male presents to the ED from the [facility] today. He is complaining of acute left lower quadrant abdominal pain that he can localize very well since FridayMarch 02. Patient has a history of recurrent diverticulitis having had diverticulitis for 5 times in the past. It is localized to exactly the same spot as usual. He took some milk of magnesia and cleaned himself out on Friday and Friday morning. Not had a bowel movement since. No blood no diarrhea. No fever no chills. Appetite remains fair. He suspects the last bout of diverticulitis was 5 years ago. Previous abdominal surgery is that of a laparoscopic cholecystectomy only. Onset: Sudden Onset Date: 03/02/21 Onset Time: 13:00 Duration: Day(s):, Constant, Getting Worse Location: Reports: Abdomen (Left lower quadrant abdominal pain). Denies: Radiates to Quality: Reports: Ache, Sharp, Stabbing, Other (Worsened by walking) Severity: Moderate Improves with: Reports: Rest Worsens with: Reports: Movement (Walks hunched over cannot stand fully erect.) Context: Reports: Other (Spontaneous occurrence of pain Friday). Denies: Activity, Exercise, Lifting, Sick Contact, Trauma Associated Symptoms: Reports: No Other Symptoms. Denies: Confusion, Chest Pain, Cough, cough w sputum, Fever/Chills, Headaches, Loss of Appetite, Malaise, Nausea/Vomiting, Rash, Seizure, Shortness of Breath, Syncope, Weakness Treatments [employer]: Reports: Acetaminophen Abdominal Pain Score (Numeric/FACES): 6 - Related Data Allergies Allergy/AdvReac Type Severity Reaction Status Date / Time iodine Allergy Severe Other Verified 03/04/21 11:31 sulfamethoxazole Allergy Abdominal Verified 03/04/21 11:31 [From Bactrim] Pain trimethoprim [From Bactrim] Allergy Abdominal Verified 03/04/21 11:31 Pain clarithromycin AdvReac Severe Nausea Verified 03/04/21 11:31 Home Meds: Home Meds Benazepril [Lotensin] 10 mg PO DAILY 03/11/19 [History] Simvastatin [Zocor] 10 mg PO BEDTIME 03/11/19 [History] Triamterene/Hydrochlorothiazid [Triamterene-HCTZ 37.5-25 MG] 1 each PO BEDTIME 03/11/19 [History] allopurinoL [Zyloprim] 100 mg PO DAILY 03/11/19 [History] Ondansetron [Zofran ODT] 1 tab PO Q8H PRN #10 tab.dis 03/13/20 [Rx] Cholecalciferol (Vitamin D3) [Vitamin D] 1 tab PO DAILY 03/15/20 [History] Multivitamin [Multivitamins] 1 tab PO DAILY 03/15/20 [History] levoFLOXacin [Levaquin] 500 mg PO DAILY #9 tab 03/04/21 [Rx] metroNIDAZOLE [Flagyl] 500 mg PO Q8H #21 tab 03/04/21 [Rx] Past Medical History HEENT History: Reports: Other (See Below) Other HEENT History: wears glasses Cardiovascular History: Reports: High Cholesterol, Hypertension Respiratory History: Reports: Sleep Apnea Other Respiratory History: wear cpap at night Gastrointestinal History: Reports: GERD Genitourinary History: Reports: Renal Calculus Musculoskeletal History: Reports: Other (See Below) Other Musculoskeletal History: no gout-takes allopurinol for increased uric acid Psychiatric History: Reports: None Endocrine/Metabolic History: Reports: Obesity/BMI 30+ - Infectious Disease History Infectious Disease History: Reports: Novel Coronavirus - Past Surgical History HEENT Surgical History: Reports: Naso-Sinus Surgery, Oral Surgery GI Surgical History: Reports: Cholecystectomy Male Surgical History: Reports: Lithotripsy (ESWL), Renal Calculus Musculoskeletal Surgical History: Reports: Other (See Below) Social & Family History - Family History Family Medical History: No Pertinent Family History - Tobacco Use Tobacco Use Status *Q: Never Tobacco User Second Hand Smoke Exposure: No - Caffeine Use Caffeine Use: Reports: None - Recreational Drug Use Recreational Drug Use: No - Living Situation & Occupation Living situation: Reports: , with Spouse Occupation: Retired ED ROS GENERAL - Review of Systems Review Of Systems: See Below Constitutional: Reports: Decreased Appetite. Denies: Fever, Chills, Malaise, Weakness, Fatigue HEENT: Reports: Glasses (Had a decreased appetite) Respiratory: Reports: Shortness of Breath. Denies: Wheezing, Pleuritic Chest Pain (On exertion only), Cough Cardiovascular: Reports: No Symptoms Endocrine: Reports: No Symptoms GI/Abdominal: Reports: Abdominal Pain (See history of present illness), Decreased Appetite. Denies: Hematochezia, Melena, Nausea, Vomiting : Reports: Frequency, Other Musculoskeletal: Reports: Joint Pain (Nocturia usually x2.) Skin: Reports: No Symptoms ( Knees hips low back neck and shoulders at times) Neurological: Reports: Paresthesia Psychiatric: Reports: No Symptoms Hematologic/Lymphatic: Reports: No Symptoms Immunologic: Reports: No Symptoms ED EXAM, GI/ABD - Physical Exam Exam: See Below Exam Limited By: No Limitations General Appearance: Alert, WD/WN, No Apparent Distress, Other (Temperature is 36.4 degrees. Heart rate 7079 is sinus. Respiratory is 20 with O2 sats of 95% room air. BP is 141/92) Eyes: Bilateral: Normal Appearance (No blepharal pallor or scleral icterus.) Throat/Mouth: Normal Inspection, Normal Lips, Normal Oropharynx, Other Head: Atraumatic (Tongue is moist.), Normocephalic Neck: Normal Inspection, Non-Tender, Full Range of Motion, Tender Lateral (Loss of 10 degrees flexion). No: Lymphadenopathy (L) Respiratory/Chest: No Respiratory Distress ( and lateral flexion and lateral rotation of his cervical spine with crepitus), Lungs Clear, Normal Breath Sounds, No Accessory Muscle Use, Decreased Breath Sounds (Sounds are diminished to both posterior lung velasco due to his size.) Cardiovascular: Normal Peripheral Pulses, Regular Rate, Rhythm, No Edema, No Gallop, No Murmur, No Rub GI/Abdominal Exam: Normal Bowel Sounds, Soft, No Organomegaly, No Mass, Guarding, Rebound (Very well localized to the left lower quadrant of the abdomen over the distribution of the sigmoid colon. Tender to this area even to mild percussion.), Other (No signs of peritonitis other than very well localized area of pain. Abdomen is distended moderately obese. Evidence of previous laparoscopic cholecystectomy) (Male) Exam: No Hernia Back Exam: Normal Inspection. No: CVA Tenderness (L), CVA Tenderness (R) Extremities: Normal Inspection, Normal Range of Motion, No Pedal Edema Neurological: Alert, Oriented, CN II-XII Intact, Normal Cognition, No Motor/Sensory Deficits Psychiatric: Normal Affect, Normal Mood Skin Exam: Warm, Dry, Intact, Normal Color, No Rash Course - Vital Signs Last Recorded V/S: Last Vital Signs Temp 36.4 C 03/04/21 11:30 Pulse 79 03/04/21 11:30 Resp 20 03/04/21 11:30 BP 141/92 H 03/04/21 11:30 Pulse Ox 95 03/04/21 11:30 - Orders/Labs/Meds Labs: Laboratory Tests 03/04/21 03/04/21 03/04/21 Range/Units 12:05 12:05 13:00 WBC 12.70 H (4.23-9.07) K/mm3 RBC 5.25 (4.63-6.08) M/mm3 Hgb 14.9 (13.7-17.5) gm/dl Hct 45.0 (40.1-51.0) % MCV 85.7 (79.0-92.2) fl MCH 28.4 (25.7-32.2) pg MCHC 33.1 (32.2-35.5) g/dl RDW Std Deviation 42.7 (35.1-43.9) fL Plt Count 221 (163-337) K/mm3 MPV 9.8 (9.4-12.3) fl Neut % (Auto) 69.6 H (34.0-67.9) % Lymph % (Auto) 20.2 L (21.8-53.1) % [place] % (Auto) 8.3 (5.3-12.2) % Eos % (Auto) 1.6 (0.8-7.0) Baso % (Auto) 0.1 (0.1-1.2) % Neut # (Auto) 8.86 H (1.78-5.38) K/mm3 Lymph # (Auto) 2.56 (1.32-3.57) K/mm3 [place] # (Auto) 1.05 H (0.30-0.82) K/mm3 Eos # (Auto) 0.20 (0.04-0.54) K/mm3 Baso # (Auto) 0.01 (0.01-0.08) K/mm3 Sodium 137 (136-145) mEq/L Potassium 4.3 (3.5-5.1) mEq/L Chloride 101 (98-107) mEq/L Carbon Dioxide 27 (21-32) mEq/L Anion Gap 13.3 (5-15) BUN 17 (7-18) mg/dL Creatinine 0.9 (0.7-1.3) mg/dL Est Cr Clr Drug Dosing 84.49 mL/min Estimated GFR (MDRD) > 60 (>60) mL/min BUN/Creatinine Ratio 18.9 H (14-18) Glucose 106 H (70-99) mg/dL Calcium 9.3 (8.5-10.1) mg/dL Total Bilirubin 1.0 (0.2-1.0) mg/dL AST 12 L (15-37) U/L ALT 24 (16-63) U/L Alkaline Phosphatase 69 (46-116) U/L C-Reactive Protein 4.2 H* (<1.0) mg/dL Total Protein 7.8 (6.4-8.2) g/dl Albumin 4.1 (3.4-5.0) g/dl Globulin 3.7 gm/dL Albumin/Globulin Ratio 1.1 (1-2) Lipase 80 (73-393) U/L Urine Color Yellow (Yellow) Urine Appearance Clear (Clear) Urine pH 6.5 (5.0-8.0) Ur Specific [place] 1.025 (1.005-1.030) Urine Protein Negative (Negative) Urine Glucose (UA) Negative (Negative) Urine Ketones Negative (Negative) Urine Occult Blood Trace-intact H (Negative) Urine Nitrite Negative (Negative) Urine Bilirubin Negative (Negative) Urine Urobilinogen 0.2 (0.2-1.0) Ur Leukocyte Esterase Trace H (Negative) Urine RBC 0-5 (0-5) /hpf Urine WBC 0-5 (0-5) /hpf Ur Squamous Epith Cells 0-5 (0-5) /hpf Urine Bacteria Few (FEW) /hpf Urine Mucus Few (FEW) /hpf Meds: Medications Discontinued Medications Generic Name Dose Route Start Last Admin Trade Name Freq PRN Reason Stop Dose Admin Diatrizoate Meglum/Diatrizoate Sod 90 ml 03/04/21 12:10 03/04/21 13:12 Diatrizoate Meglumine/Diatrizoate Sodium 37% 120 Ml Bottle PO 03/04/21 12:11 45 ml ONETIME ONE Administration Sodium Chloride 1,000 mls @ 125 mls/hr 03/04/21 12:00 03/04/21 12:05 Normal Saline IV 125 mls/hr ASDIRECTED CHARLES Administration Levofloxacin/Dextrose 750 mg/ 150 mls @ 100 mls/hr 03/04/21 11:48 03/04/21 12:05 Premix IV 03/04/21 13:17 100 mls/hr ONETIME ONE Administration - Radiology Interpretation Free Text/Narrative:: 65-year-old male presents to the ED with acute onset of left lower quadrant abdominal pain on Friday afternoon March 02. Is localized very well to the left lower quadrant over the distribution of the sigmoid colon. He has a history of recurrent diverticulitis and he believes this is either his 4th or 5 th time with suspect diverticulitis. No associated fever chills nausea or vomiting. Appetite remains fair. He did take some milk of magnesia and had several bowel movements Friday night and Friday morning and no bowel movement since. Pain is worsening. He states he is walking hunched over today and hurts to walk indicating peritoneal irritation. Plan he will have CT of the abdomen pelvis with oral contrast. Labs collected. He is afebrile at present blood cultures were not obtained. I am going to start him on Levaquin 750 mg IV as soon as labs have been obtained. - Re-Assessments/Exams Free Text/Narrative Re-Assessment/Exam: 03/04/21 13:06 WBC count is mildly elevated at 12.70 with 70% neutrophils on the auto differential. Hemoglobin is 14.9 with hematocrit of 45.0 platelet counts 221,000. Sodium 137 with a potassium of 4.3. Chloride 101 with a bicarb of 27. Anion gap is 13.3. BUN is 17 with a creatinine of 0.9 and a GFR greate r than 60. Glucose was 106 with a calcium of 9.3. Liver function is normal. C-reactive protein is 4.2. Total protein 7.8 with an albumin fraction of 4.1. Lipase is 80 normal 03/04/21 13:33 T of the abdomen has been completed with oral contrast. Visualized portion of the lung showed minimal dependent changes present in lung bases compared with atelectasis. Small hiatal hernia is evident. Liver is normal with no masses. He is status post cholecystectomy. Pancreas is normal with no ductal dilatation. Spleen is mildly prominent. Adrenal glands are normal with no masses. Kidneys and ureters revealed bilateral intrarenal calculi focal inflammatory changes are present in the pericolic fat adjacent to the distal descending colon. Diverticuli are present. Findings are compatible with acute diverticulitis. The appendix is seen and is normal in appearance. Intraperitoneal space is unremarkable with no free air and no significant fluid collections. Vascular calcifications are present. Lymph nodes unremarkable urinary bladder appears unremarkable as visualized. Reproductive unremarkable as visualized. Bones joints show spinal degenerative changes appreciated throughout the lumbar spine. I have discussed the findings of the labs and the CT scan with the patient. He will be discharged to home on Levaquin 500 mg once daily for another 9 days with next tablet due tomorrow morning. Flagyl 500 mg 3 times daily for the next 7 days and with ideally 2 tablets taken today. He will use Tylenol or Motrin for pain relief. He did not wish anything stronger. He is to expect improvement over the next 72 hours. If not or pain worsens he is to return to medical care Departure - Departure Time of Disposition: 13:35 Disposition: Home, Self-Care 01 Condition: Fair Clinical Impression: Diverticulitis large intestine Qualifiers: Diverticulitis bleeding: without bleeding Diverticulitis complication: without perforation or abscess Qualified Code(s): K57.32 - Diverticulitis of large intestine without perforation or abscess without bleeding - Discharge Information *PRESCRIPTION DRUG MONITORING PROGRAM REVIEWED*: Not Applicable *COPY OF PRESCRIPTION DRUG MONITORING REPORT IN PATIENT GEE: Not Applicable Prescriptions: metroNIDAZOLE [Flagyl] 500 mg PO Q8H #21 tab levoFLOXacin [Levaquin] 500 mg PO DAILY #9 tab Instructions: Diverticulitis Referrals: Hilton Webster MD [Primary Care Provider] - Forms: ED Department Discharge Additional Instructions: Evaluation in the emergency room today in regards to very acute onset of left lower quadrant abdominal pain very well localized just underneath the abdominal wall in the left lower quadrant of your abdomen. This started on March 02 and is gradually worsened over the last 2-1/2 days. He has a history of recurrent diverticulitis over many years. No associated fever chills and appetite remains fair. Lab test done in the ED do suggest that there is an early systemic response to infection with an elevated white blood cell count and markers for inflammation. CT scan of the abdomen was carried out with oral contrast and confirms that her an area of diverticulitis localized extremely well to the area of tenderness in your left lower quadrant of the abdomen. There is no abscess or abnormal fluid collections at this time. Initial dose of antibiotic was given in the ED Levaquin 750 mg. You will need to take Levaquin 500 mg tablet every morning for the next 9 days starting tomorrow to bring the infection under control. Second antibiotic is Flagyl or metronidazole 500 mg 3 times daily for the next 7 days also to bring diverticulitis under control. I would suggest taking one as soon as you get them today and then take 1 tonight before bed with a little food in your stomach as they can cause nausea and empty stomach. Continue Tylenol or Motrin as needed for abdominal pain relief. Expect marked improvement over the next 72 hours. Of course return to medical care if pain is not markedly improved in 72 hours or condition worsens with increased pain or development of fever chills nausea or vomiting. Sepsis Event Note (ED) - Focused Exam Vital Signs: Vital Signs Temp Pulse Resp BP Pulse Ox 03/04/21 11:30 36.4 C 79 20 141/92 H 95
[2021-03-04] MEDS ORDERED: Sodium Chloride 0.9% 1,000 ML IV SCH (12:00)
[2021-03-04] MEDS ORDERED: Diatrizoate Meglumine/Diatrizoate Sodium 37% 120 ML Bottle PO ONE (12:10)
--- NOTE | 2021-03-04 15:58 | CT ---
CT abdomen and pelvis Technique: Multiple axial sections were obtained from above the dome of the diaphragm inferiorly through the pubic symphysis. Intravenous contrast was not utilized. Oral contrast has been given. Comparison: Prior CT abdomen and pelvis study of 03/11/19. Findings: Visualized lung bases show minimal atelectasis. Small low density finding is seen within the upper left lobe of the liver measuring 5 mm which is stable from prior exam. Liver shows scattered areas of fatty infiltration. No other focal abnormality is appreciated. Spleen appears within normal limits. Adrenal glands show no nodule. Pancreas shows no discrete abnormality. Surgical clips are seen from prior cholecystectomy. Small nonobstructing calculi are noted within both kidneys. No ureteral dilatation or ureteral stone is seen. Abdominal aorta shows atherosclerotic calcification with no aneurysm. No retroperitoneal adenopathy or mesenteric abnormalities are seen. Appendix is seen which is normal. There is inflammatory change being seen in the junction of the descending and sigmoid regions. This inflammatory change occurs around diverticuli and is compatible with mild diverticulitis. No fluid collections are seen to indicate abscess. No bowel dilatation is seen. No pelvic mass or adenopathy is seen. Bone window settings were reviewed which show scattered degenerative change within the spine with vacuum phenomena within the L3-4 disc as well as severe disc space narrowing within the L4-5 disc. Impression: 1. Findings compatible with mild diverticulitis near the junction of the descending and sigmoid regions. No findings of diverticular abscess is seen. 2. Bilateral nonobstructing renal calculi are seen. 3. Fatty infiltration is seen within the liver. Minimal low density finding is seen within the left lobe of the liver which is stable from prior CT abdomen and pelvis and felt to be incidental. Diagnostic code #3 I agree with preliminary report from [facility], finalized on 03/04/21, 2:26 PM CDT, code 1
== END 2021-03-04 14:15 | disposition home or self-care (01) ==
LOC: JD.ED 11:19
DX: K57.32 Diverticulitis of large intestine without perforation or abscess without bleeding (principal); D72.829 Elevated white blood cell count, unspecified; E78.00 Pure hypercholesterolemia, unspecified; I10 Essential (primary) hypertension; E66.9 Obesity, unspecified; Z68.37 Body mass index [BMI] 37.0-37.9, adult; Z88.8 Allergy status to other drugs, medicaments and biological substances; Z88.2 Allergy status to sulfonamides; Z88.1 Allergy status to other antibiotic agents; Z79.899 Other long term (current) drug therapy
CPT/HCPCS: 36415; 74176; 80053; 81001; 83690; 85025; 86140; 96365; 99284; J1956; J7030; Q9963

== ENCOUNTER 2021-04-30 20:21 | Emergency (ER) | payer BC ==
[2021-04-30] MEDS ORDERED: Aspirin 81 MG Tab.Chew PO ONE (21:19)
[2021-04-30] MEDS ORDERED: Alum Hydrox/Mag Hydrox/Simeth 30 ML, Lidocaine 2% 15 ML PO STA ×2 (22:13)
--- NOTE | 2021-04-30 22:16 | EDM.PDOC ---
ED HPI GENERAL MEDICAL PROBLEM - General Chief Complaint: Chest Pain Stated Complaint: CHEST PAIN Time Seen by Provider: 04/30/21 21:16 Source of Information: Reports: Patient, Family () History Limitations: Reports: No Limitations - History of Present Illness INITIAL COMMENTS - FREE TEXT/NARRATIVE: Mr. Quijano is a very pleasant 65-year-old gentleman who now presents to the ED stating that he has been experiencing a heartburn-like pain extending from his epigastrium to his central chest and into both arms and slightly into his upper back on and off for the past 5 to 10 years. He feels lightheaded if his symptoms are particularly bad, which he does about every 1.5 to 2 years. He was recently started on Protonix and Carafate, but his symptoms recurred around 15:30 this afternoon, and have not resolved, which they normally do. He gets some relief with belching, therefore he drank a Pepsi, which he thought might help, but didn't. No associated nausea, vomiting, dyspnea, diaphoresis, or sense of impending doom. The patient's last cardiac stress test was about 20 years ago. The patient does not have a history of known coronary disease. At triage, the patient was found to be slightly bradycardic at 57 bpm, otherwise hemodynamically stable, afebrile, saturating 95% on room air. He appears to be relatively comfortable, in no acute distress. Prior to this afternoon, the patient denies having a recent fever, chills, sore throat, ear pain, nasal or sinus congestion, cough, dyspnea, chest pain, palpitations, nausea, vomiting, constipation, diarrhea, abdominal pain, urinary symptoms, recent weight gain or weight loss, recent bloody bowel movements or black bowel movements, recent joint aches, headaches, or rashes. The patient's PCP is Dr. Hilton Webster. He has not received a COVID vaccination, nor an influenza vaccination this season. Middle Chest Pain Score (Numeric/FACES): 5 - Related Data Allergies Allergy/AdvReac Type Severity Reaction Status Date / Time iodine Allergy Intermediate Sneezing Verified 03/05/21 11:29 clarithromycin AdvReac Intermediate Nausea Verified 03/05/21 11:29 sulfamethoxazole AdvReac Abdominal Verified 03/05/21 11:29 [From Bactrim] Pain trimethoprim [From Bactrim] AdvReac Abdominal Verified 03/05/21 11:29 Pain Home Meds: Home Meds Benazepril [Lotensin] 10 mg PO DAILY 03/11/19 [History] Simvastatin [Zocor] 10 mg PO BEDTIME 03/11/19 [History] Triamterene/Hydrochlorothiazid [Triamterene-HCTZ 37.5-25 MG] 1 each PO BEDTIME 03/11/19 [History] allopurinoL [Zyloprim] 100 mg PO DAILY 03/11/19 [History] Ondansetron [Zofran ODT] 1 tab PO Q8H PRN #10 tab.dis 03/13/20 [Rx] Cholecalciferol (Vitamin D3) [Vitamin D] 1 tab PO DAILY 03/15/20 [History] Multivitamin [Multivitamins] 1 tab PO DAILY 03/15/20 [History] levoFLOXacin [Levaquin] 500 mg PO DAILY #9 tab 03/04/21 [Rx] metroNIDAZOLE [Flagyl] 500 mg PO Q8H #21 tab 03/04/21 [Rx] Past Medical History HEENT History: Reports: Impaired Vision (wears glasses) Cardiovascular History: Reports: High Cholesterol, Hypertension Respiratory History: Reports: Sleep Apnea (nightly CPAP) Gastrointestinal History: Reports: GERD Genitourinary History: Reports: Renal Calculus Endocrine/Metabolic History: Reports: Obesity/BMI 30+ - Infectious Disease History Infectious Disease History: Reports: Novel Coronavirus (dx'd 03/07/2020) - Past Surgical History HEENT Surgical History: Reports: Naso-Sinus Surgery (rhinoplasty), Oral Surgery (dental extractions) GI Surgical History: Reports: Cholecystectomy (around 1999) Male Surgical History: Reports: Lithotripsy (ES[facility]) Musculoskeletal Surgical History: Reports: Other (See Below) (Left ruptured biceps tendon arthroscopic repair) Social & Family History - Tobacco Use Tobacco Use Status *Q: Never Tobacco User - Caffeine Use Caffeine Use: Reports: Coffee, Soda, Tea - Alcohol Use Alcohol Use History: Yes Alcohol Use Frequency: Rarely - Recreational Drug Use Recreational Drug Use: No - Living Situation & Occupation Living situation: Reports: , with Spouse Occupation: Retired ED ROS GENERAL - Review of Systems Review Of Systems: Comprehensive ROS is negative, except as noted in HPI. ED EXAM, GENERAL - Physical Exam Exam: See Below Exam Limited By: No Limitations General Appearance: Alert, WD/WN, No Apparent Distress Eye Exam: Bilateral Eye: EOMI, Normal Inspection Ears: Normal External Exam, Hearing Grossly Normal Nose: Normal Inspection Throat/Mouth: Normal Inspection, Normal Lips, Normal Voice, No Airway Compromise Head: Atraumatic, Normocephalic Neck: Normal Inspection, Full Range of Motion Respiratory/Chest: No Respiratory Distress, Lungs Clear, Normal Breath Sounds, No Accessory Muscle Use Cardiovascular: Normal Peripheral Pulses, Regular Rate, Rhythm, No Gallop, No JVD, No Murmur, No Rub Peripheral Pulses: 3+: Radial (L), Radial (R) GI/Abdominal: Normal Bowel Sounds, Soft, Non-Tender (including the epigastrium), No Organomegaly, No Distention, No Abnormal Bruit, No Mass Back Exam: Normal Inspection, Full Range of Motion, NT Extremities: Normal Inspection, Normal Range of Motion, Normal Capillary Refill Neurological: Alert, Oriented, Normal Cognition, No Motor/Sensory Deficits Psychiatric: Normal Affect Skin Exam: Warm, Dry, Intact, Normal Color, No Rash #1 Interpretation EKG Date: 04/30/21 Time: 21:05 Rhythm: NSR Rate (Beats/Min): 64 [place]: Normal P-Wave: Present QRS: Normal ST-T: Normal QT: Normal Comparison: No Change (06/13/2020) Course - Vital Signs Last Recorded V/S: Last Vital Signs Temp 36.9 C 04/30/21 21:28 Pulse 57 L 04/30/21 21:28 Resp 20 04/30/21 21:28 BP 133/79 04/30/21 21:28 Pulse Ox 95 04/30/21 21:28 - Orders/Labs/Meds Labs: Laboratory Tests 04/30/21 04/30/21 04/30/21 Range/Units 21:40 21:40 21:40 WBC 7.57 (4.23-9.07) K/mm3 RBC 4.89 (4.63-6.08) M/mm3 Hgb 14.1 (13.7-17.5) gm/dl Hct 42.0 (40.1-51.0) % MCV 85.9 (79.0-92.2) fl MCH 28.8 (25.7-32.2) pg MCHC 33.6 (32.2-35.5) g/dl RDW Std Deviation 41.6 (35.1-43.9) fL Plt Count 199 (163-337) K/mm3 MPV 9.6 (9.4-12.3) fl Neut % (Auto) 55.6 (34.0-67.9) % Lymph % (Auto) 32.2 (21.8-53.1) % [place] % (Auto) 9.4 (5.3-12.2) % Eos % (Auto) 2.6 (0.8-7.0) Baso % (Auto) 0.1 (0.1-1.2) % Neut # (Auto) 4.20 (1.78-5.38) K/mm3 Lymph # (Auto) 2.44 (1.32-3.57) K/mm3 [place] # (Auto) 0.71 (0.30-0.82) K/mm3 Eos # (Auto) 0.20 (0.04-0.54) K/mm3 Baso # (Auto) 0.01 (0.01-0.08) K/mm3 PT 10.7 (9.7-12.0) SECONDS INR 0.96 D-Dimer, Quantitative < 0.19 L (0.19-0.50) mg/L Sodium 140 (136-145) mEq/L Potassium 3.8 (3.5-5.1) mEq/L Chloride 102 (98-107) mEq/L Carbon Dioxide 27 (21-32) mEq/L Anion Gap 14.8 (5-15) BUN 18 (7-18) mg/dL Creatinine 0.9 (0.7-1.3) mg/dL Est Cr Clr Drug Dosing 81.83 mL/min Estimated GFR (MDRD) > 60 (>60) mL/min BUN/Creatinine Ratio 20.0 H (14-18) Glucose 107 H (70-99) mg/dL Calcium 8.9 (8.5-10.1) mg/dL Magnesium 2.0 (1.8-2.4) mg/dL Total Bilirubin 0.5 (0.2-1.0) mg/dL AST 16 (15-37) U/L ALT 36 (16-63) U/L Alkaline Phosphatase 66 (46-116) U/L Troponin I < 0.017 (0.00-0.056) ng/mL NT-Pro-B Natriuret Pep (0-125) pg/mL Total Protein 7.2 (6.4-8.2) g/dl Albumin 4.1 (3.4-5.0) g/dl Globulin 3.1 gm/dL Albumin/Globulin Ratio 1.3 (1-2) 04/30/21 Range/Units 21:40 WBC (4.23-9.07) K/mm3 RBC (4.63-6.08) M/mm3 Hgb (13.7-17.5) gm/dl Hct (40.1-51.0) % MCV (79.0-92.2) fl MCH (25.7-32.2) pg MCHC (32.2-35.5) g/dl RDW Std Deviation (35.1-43.9) fL Plt Count (163-337) K/mm3 MPV (9.4-12.3) fl Neut % (Auto) (34.0-67.9) % Lymph % (Auto) (21.8-53.1) % [place] % (Auto) (5.3-12.2) % Eos % (Auto) (0.8-7.0) Baso % (Auto) (0.1-1.2) % Neut # (Auto) (1.78-5.38) K/mm3 Lymph # (Auto) (1.32-3.57) K/mm3 [place] # (Auto) (0.30-0.82) K/mm3 Eos # (Auto) (0.04-0.54) K/mm3 Baso # (Auto) (0.01-0.08) K/mm3 PT (9.7-12.0) SECONDS INR D-Dimer, Quantitative (0.19-0.50) mg/L Sodium (136-145) mEq/L Potassium (3.5-5.1) mEq/L Chloride (98-107) mEq/L Carbon Dioxide (21-32) mEq/L Anion Gap (5-15) BUN (7-18) mg/dL Creatinine (0.7-1.3) mg/dL Est Cr Clr Drug Dosing mL/min Estimated GFR (MDRD) (>60) mL/min BUN/Creatinine Ratio (14-18) Glucose (70-99) mg/dL Calcium (8.5-10.1) mg/dL Magnesium (1.8-2.4) mg/dL Total Bilirubin (0.2-1.0) mg/dL AST (15-37) U/L ALT (16-63) U/L Alkaline Phosphatase (46-116) U/L Troponin I (0.00-0.056) ng/mL NT-Pro-B Natriuret Pep 30 (0-125) pg/mL Total Protein (6.4-8.2) g/dl Albumin (3.4-5.0) g/dl Globulin gm/dL Albumin/Globulin Ratio (1-2) Meds: Medications Discontinued Medications Generic Name Dose Route Start Last Admin Trade Name Freq PRN Reason Stop Dose Admin Aspirin 324 mg 04/30/21 21:19 12 22:14 Aspirin 81 Mg Tab.Chew PO 04/30/21 21:20 324 mg ONETIME ONE Administration Al Hydroxide/Mg Hydroxide 30 0 ml 04/30/21 22:13 04/30/21 22:21 ml/ Lidocaine HCl 15 ml PO 04/30/21 22:14 45 ml ONETIME STA Administration - Re-Assessments/Exams Free Text/Narrative Re-Assessment/Exam: 04/30/21 22:14 The patient's presentation is most likely due to GERD, therefore I ordered a GI cocktail to see if that modifies his symptoms at all. An ECG, obtained at triage, shows no ischemic changes. A CBC, CMP, magnesium level, troponin, pro- BNP, D-dimer, INR, and portable chest x-ray were also ordered at triage, along with 4 baby aspirin. Portable chest radiograph appears to be grossly normal. The cardiac silhouette is within normal limits. No pulmonary vascular congestion. No pleural effusions seen on this AP view. No focal infiltrate. No pneumothorax. Formal read per the Radiologist pending. 04/30/21 22:41 Beulah OMER reports that the patient had relief with the GI cocktail. The patient's CBC is unremarkable. His CMP is remarkable for slight hyperglycemia of 107, and is otherwise unremarkable. His magnesium level is within normal limits at 2.0. His troponin is undetectably low. His pro-BNP is within normal limits at 30. His D-dimer is undetectably low. His INR is within normal limits. 04/30/21 22:47 Test results discussed with the patient and his . As above, today's work-up is entirely unremarkable, and it appears that he is suffering from GERD. I recommended that he acquire some antacids, such as TUMS, Rolaids, Maalox, or Mylanta, and take that on a as-needed basis. I also recommended that he follow- up with Dr. Webster to discuss switching to a different PPI. Departure - Departure Time of Disposition: 22:49 Disposition: Home, Self-Care 01 Condition: Good Clinical Impression: GERD (gastroesophageal reflux disease) - Discharge Information *PRESCRIPTION DRUG MONITORING PROGRAM REVIEWED*: Not Applicable *COPY OF PRESCRIPTION DRUG MONITORING REPORT IN PATIENT GEE: Not Applicable Instructions: Gastroesophageal Reflux Disease, Adult, [id number] Referrals: Hilton Webster MD [Primary Care Provider] - Forms: ED Department Discharge Additional Instructions: You were seen in the emergency room after experiencing an exacerbation of your recurrent heartburn-like symptoms, including pain in your chest going down both arms, slight upper back pain, and lightheadedness. Work-up in the ER included numerous blood tests, a chest x-ray, and an ECG. Your entire work-up was unremarkable. You have not suffered a heart attack. You do not have a blood clot in your lungs. You do not have pneumonia or a collapsed lung. You had significant relief following the GI cocktail. Based on your history, physical exam, and ER tests, your symptoms are most likely due to GERD. We recommend that you purchase and keep handy an antacid, such as TUMS, Rolaids, Maalox, or Mylanta, and take it on an as-needed basis. We also recommend that you follow-up with your PCP, Dr. Hilton Webster, to discuss switching to a different proton pump inhibitor. If any other problems, please do not hesitate to return to the ER.
--- NOTE | 2021-05-01 06:32 | CR ---
Chest: Portable view of the chest was obtained. Comparison: Prior chest x-ray of 06/13/20. Heart size and mediastinum are normal. Lungs are clear with no acute parenchymal change seen. Mild degenerative spurring is noted within the spine. Impression: 1. Nothing acute is seen on portable chest x-ray. Diagnostic code #2
== END 2021-04-30 23:05 | disposition home or self-care (01) ==
LOC: JD.ED 20:21
DX: K21.9 Gastro-esophageal reflux disease without esophagitis (principal); E78.00 Pure hypercholesterolemia, unspecified; I10 Essential (primary) hypertension; I25.10 Atherosclerotic heart disease of native coronary artery without angina pectoris; E66.9 Obesity, unspecified; Z68.38 Body mass index [BMI] 38.0-38.9, adult; Z86.16 Personal history of COVID-19; Z88.8 Allergy status to other drugs, medicaments and biological substances; Z88.1 Allergy status to other antibiotic agents; Z88.2 Allergy status to sulfonamides; Z79.899 Other long term (current) drug therapy
CPT/HCPCS: 36415; 71045; 80053; 83735; 83880; 84484; 85025; 85379; 85610; 93005; 99285; A9270

== ENCOUNTER 2023-05-31 10:08 | Emergency (ER) | payer MEDICARE, OTHER ==
[2023-05-31] MEDS ORDERED: Sodium Chloride 0.9% 10 ML Syringe FLUSH PRN (10:42)
[2023-05-31] MEDS ORDERED: Alum Hydrox/Mag Hydrox/Simeth 30 ML, Lidocaine 2% 15 ML PO ONE ×2 (10:43)
[2023-05-31 10:55] LABS: BASOPHILS PERCENT AUTO 0.3 % (0.0-1.0); EOSINOPHILS ABSOLUTE AUTO 0.2 K/mm3 (0.0-0.4); HEMOGLOBIN 14.2 gm/dl (14.0-18.0); IMMATURE GRAN ABSOLUTE AUTO 0.03 K/mm3 (0.00-0.05); IMMATURE GRAN PERCENT AUTO 0.4 % (0.0-0.4); LYMPHOCYTES ABSOLUTE AUTO 2.4 K/mm3 (1.0-4.8); LYMPHOCYTES PERCENT AUTO 33.6 % (24.0-44.0); MEAN CORPUSCULAR HEMOGLOBIN 29.2 pg (28.0-32.0); MEAN CORPUSCULAR HGB CONC 33.8 g/dl (32.0-36.0); MEAN CORPUSCULAR VOLUME 86.2 fl (83.0-99.0); MEAN PLATELET VOLUME 9.3 fl (9.4-12.4); MONOCYTES ABSOLUTE AUTO 0.5 K/mm3 (0.0-0.8); MONOCYTES PERCENT AUTO 7.5 % (0.0-8.0); NEUTROPHILS ABSOLUTE AUTO 3.9 K/mm3 (1.8-7.7); NEUTROPHILS PERCENT AUTO 55.2 % (41.0-71.0); PLATELET COUNT,PLT 183 K/mm3 (150-400); RED BLOOD CELL COUNT 4.87 M/mm3 (4.52-5.90); WHITE BLOOD CELL COUNT,WBC 7.11 K/mm3 (3.9-11.3)
[2023-05-31 11:19] LABS: A/G RATIO 1.2 (1-2); ALANINE AMINOTRANSFERASE,ALT 39 U/L (16-63); ALBUMIN 3.9 g/dl (3.4-5.0); ALKALINE PHOSPHATASE 64 U/L (46-116); ANION GAP 11.6 (5-15); ASPARTATE AMNIOTRANSFERASE,AST 20 U/L (15-37); BILIRUBIN TOTAL 0.7 mg/dL (0.2-1.0); BLOOD UREA NITROGEN,BUN 14 mg/dL (7-18); BUN/CREATININE RATIO 15.6 (14-18); CALCIUM 9.1 mg/dL (8.5-10.1); CARBON DIOXIDE,CO2 28 mEq/L (21-32); CHLORIDE,CL 102 mEq/L (98-107); CREATININE 0.9 mg/dL (0.7-1.3); EST CRCL DRUG DOSING (CG) 82.24 mL/min; ESTIMATED GFR 94 mL/min (>60); GLUCOSE RANDOM 146 mg/dL (70-99); POTASSIUM,K 3.6 mEq/L (3.5-5.1); PROTEIN TOTAL,TP 7.3 g/dl (6.4-8.2); SODIUM,NA 138 mEq/L (136-145)
[2023-05-31 11:21] LABS: TROPONIN I HIGH SENSITIVITY < 4 pg/mL (<=76)
== END 2023-05-31 12:45 | disposition home or self-care (01) ==
LOC: JD.ED 10:08
DX: R07.89 Other chest pain (principal); K21.9 Gastro-esophageal reflux disease without esophagitis; I10 Essential (primary) hypertension; E78.00 Pure hypercholesterolemia, unspecified; E66.9 Obesity, unspecified; Z86.16 Personal history of COVID-19; Z79.899 Other long term (current) drug therapy; Z88.2 Allergy status to sulfonamides; Z88.8 Allergy status to other drugs, medicaments and biological substances; Z88.1 Allergy status to other antibiotic agents; Z91.041 Radiographic dye allergy status
CPT/HCPCS: 36415; 71045; 80053; 84484; 85025; 93005; 99285; A9270; J3490; 93010; 99283

== ENCOUNTER 2025-02-18 06:06 | Emergency (ER) | payer MEDICARE, OTHER ==
[2025-02-18 06:53] LABS: BASOPHILS ABSOLUTE AUTO 0.0 K/mm3 (0.0-0.2); BASOPHILS PERCENT AUTO 0.2 % (0.0-1.0); EOSINOPHILS ABSOLUTE AUTO 0.3 K/mm3 (0.0-0.4); EOSINOPHILS PERCENT AUTO 2.2 % (0.0-6.0); IMMATURE GRAN ABSOLUTE AUTO 0.05 K/mm3 (0.00-0.05); IMMATURE GRAN PERCENT AUTO 0.4 % (0.0-0.4); LYMPHOCYTES ABSOLUTE AUTO 2.5 K/mm3 (1.0-4.8); LYMPHOCYTES PERCENT AUTO 20.5 % (24.0-44.0); MEAN PLATELET VOLUME 9.7 fl (9.4-12.4); MONOCYTES ABSOLUTE AUTO 1.0 K/mm3 (0.0-0.8); MONOCYTES PERCENT AUTO 8.1 % (0.0-8.0); NEUTROPHILS ABSOLUTE AUTO 8.4 K/mm3 (1.8-7.7); NEUTROPHILS PERCENT AUTO 68.6 % (41.0-71.0); NRBC ABSOLUTE 0.00 (0.00-0.02); NRBC PERCENT 0.0 % (0.0-0.2); PLATELET COUNT,PLT 193 K/mm3 (150-400); RED BLOOD CELL COUNT 4.85 M/mm3 (4.52-5.90); WHITE BLOOD CELL COUNT,WBC 12.28 K/mm3 (3.9-11.3)
[2025-02-18] MEDS: Sodium Chloride 0.9% 10 ML Syringe FLUSH PRN (07:07)
[2025-02-18 07:15] LABS: A/G RATIO 1.3 (1-2); ALANINE AMINOTRANSFERASE,ALT 35.0 U/L (16-63); ASPARTATE AMNIOTRANSFERASE,AST 18.0 U/L (15-37); BILIRUBIN TOTAL 0.9 mg/dL (0.2-1.0); BLOOD UREA NITROGEN,BUN 18.0 mg/dL (7-18); CARBON DIOXIDE,CO2 29.0 mEq/L (21-32); CHLORIDE,CL 103.0 mEq/L (98-107); CREATININE 0.9 mg/dL (0.7-1.3); EST CRCL DRUG DOSING (CG) 79.98 mL/min; ESTIMATED GFR 92.0 mL/min (>60); GLUCOSE RANDOM 119.0 mg/dL (70-99); POTASSIUM,K 4.2 mEq/L (3.5-5.1); PROTEIN TOTAL,TP 7.2 g/dl (6.4-8.2); SODIUM,NA 140.0 mEq/L (136-145)
[2025-02-18 08:04] LABS: APPEARANCE,URINE CLEAR (Clear); GLUCOSE,URINE NEGATIVE (Negative); OCCULT BLOOD,URINE NEGATIVE (Negative)
[2025-02-18 08:10] LABS: SQUAMOUS EPITHELIAL CELLS,UR 0-5 /hpf (0-5)
== END 2025-02-18 09:11 | disposition home or self-care (01) ==
LOC: JD.ED 06:06
DX: K57.32 Diverticulitis of large intestine without perforation or abscess without bleeding (principal); I10 Essential (primary) hypertension; E78.00 Pure hypercholesterolemia, unspecified; E66.9 Obesity, unspecified; Z88.1 Allergy status to other antibiotic agents; Z88.2 Allergy status to sulfonamides; Z88.8 Allergy status to other drugs, medicaments and biological substances; Z91.041 Radiographic dye allergy status; Z79.890 Hormone replacement therapy; Z79.899 Other long term (current) drug therapy; Z86.16 Personal history of COVID-19; Z90.49 Acquired absence of other specified parts of digestive tract; Z68.37 Body mass index [BMI] 37.0-37.9, adult
CPT/HCPCS: 36415; 74176; 80053; 81001; 82010; 83690; 85025; 96360; 99284; A9270; J7030